=== PATIENT | female | born 1940 | race Caucasian/White ===

== ENCOUNTER 2018-03-25 08:31 | Day surgery (SDC) | payer MEDICARE ==
[~2018-03-25] VITALS: Ht 160 cm; Wt 55.1 kg
[~2018-03-25 08:31] MED LIST: ALPR0.257 PO; CARV3.122 PO; CLOP75TA15 PO; ESCI10TA PO; LEVO75TA7 PO; LIDOcaine 1%/PF 5ML 10 MG/ML VIAL SQ ONE; OMEP20TA5 PO
[2018-03-25 09:00] VITALS: BP 127/57
[2018-03-25] MEDS ORDERED: ACET1TAB25 PO (09:01)
[2018-03-25] MEDS ORDERED: CLOP75TA15 PO (09:01)
[2018-03-25] MEDS ORDERED: CYA500T PO (09:01)
[2018-03-25] MEDS ORDERED: FAMO20TA8 PO (09:01)
[2018-03-25] MEDS ORDERED: ATOR80TA PO (09:01)
[2018-03-25 09:30] VITALS: BP_SYST 107; BP_SYST 127; BP_DIAS 40; BP_DIAS 52
[2018-03-25 09:45] VITALS: BP 114/46
[2018-03-25] MEDS ORDERED: ibuprofen tablet 400 MG TABLET PO ONE (10:20)
== END 2018-03-25 13:45 | disposition home or self-care (01) ==
LOC: SSTAY O 08:31
PROVIDERS: ATTEND Radiology Diagnostic Radiology
DX: J90 Pleural effusion, not elsewhere classified (principal); K21.9 Gastro-esophageal reflux disease without esophagitis; E03.9 Hypothyroidism, unspecified; I48.91 Unspecified atrial fibrillation; G89.29 Other chronic pain; F41.8 Other specified anxiety disorders; I11.0 Hypertensive heart disease with heart failure; I50.9 Heart failure, unspecified; M19.90 Unspecified osteoarthritis, unspecified site; L40.9 Psoriasis, unspecified; Z96.651 Presence of right artificial knee joint; Z98.41 Cataract extraction status, right eye; Z98.42 Cataract extraction status, left eye; Z79.891 Long term (current) use of opiate analgesic; Z87.01 Personal history of pneumonia (recurrent); Z87.440 Personal history of urinary (tract) infections; Z87.11 Personal history of peptic ulcer disease; Z86.19 Personal history of other infectious and parasitic diseases; Z90.710 Acquired absence of both cervix and uterus; Z88.6 Allergy status to analgesic agent; Z88.5 Allergy status to narcotic agent; Z79.2 Long term (current) use of antibiotics; Z79.01 Long term (current) use of anticoagulants; Z79.899 Other long term (current) drug therapy; Z98.890 Other specified postprocedural states; Z82.3 Family history of stroke; Z80.9 Family history of malignant neoplasm, unspecified
CPT/HCPCS: 32555; 71045; J2001; 88108; 88305; 88341; 88342

== ENCOUNTER 2018-03-26 15:56 | Inpatient (IN) | payer MEDICARE ==
[~2018-03-26] VITALS: Ht 165.1 cm; Wt 60.0 kg
[~2018-03-26 15:56] MED LIST changes: +ACET1TAB25 PO; +ATOR80TA PO; -CARV3.122 PO; +CYA500T PO; +FAMO20TA8 PO; -LIDOcaine 1%/PF 5ML 10 MG/ML VIAL SQ ONE; -OMEP20TA5 PO
[2018-03-26] MEDS ORDERED: normal saline 1000ML IV soln IV ONE (16:05)
[2018-03-26 16:47] LABS: BASOPHILS # (AUTO) 0.1 X10'3 (0-0.2); BASOPHILS % (AUTO) 0.6 % (0-1); EOSINOPHILS # (AUTO) 0.2 X10'3 (0-0.9); EOSINOPHILS % (AUTO) 2.1 % (0-6); HEMATOCRIT 37.3 % (35.0-45.0); HEMOGLOBIN 12.6 g/dl (12.0-16.0); LYMPHOCYTES # (AUTO) 1.2 X10'3 (1.1-4.8); LYMPHOCYTES % (AUTO) 11.6 % (21-51); MEAN CORPUSCULAR HEMOGLOBIN 31.8 PG (27.0-31.0); MEAN CORPUSCULAR HGB CONC 33.7 % (33.0-36.5); MEAN CORPUSCULAR VOLUME 94.3 FL (78-98); MEAN PLATELET VOLUME 10.4 FL (7.4-10.4); MONOCYTES # (AUTO) 0.8 X10'3 (0-0.9); MONOCYTES % (AUTO) 7.5 % (2-12); NEUTROPHILS # (AUTO) 8.3 X10'3 (1.8-7.7); NEUTROPHILS % (AUTO) 78.2 % (42-75); PLATELET COUNT 155 X10'3 (140-440); RED BLOOD COUNT 3.95 X10'6 (4.20-5.60); RED CELL DISTRIBUTION WIDTH 13.9 % (11.5-14.5); WHITE BLOOD COUNT 10.6 X10'3 (4.5-11.0)
[2018-03-26 17:04] LABS: INR 1.1 INR; PROTHROMBIN TIME 11.3 SECONDS (9.0-12.0)
[2018-03-26 17:19] LABS: ALANINE AMINOTRANSFERASE 84 U/L (12-78); ALBUMIN/GLOBULIN RATIO 0.9 (1.1-1.5); ALKALINE PHOSPHATASE 85 IU/L (46-116); ANION GAP 7 (8-16); ASPARTATE AMINO TRANSFERASE 44 U/L (10-37); BILIRUBIN,TOTAL 0.9 MG/DL (0.1-1.0); BLOOD UREA NITROGEN 11 MG/DL (7-18); BUN/CREATININE RATIO 9.6 (6.6-38.0); CALCIUM 9.1 MG/DL (8.5-10.1); CHLORIDE 106 MMOL/L (99-107); CREATININE 1.15 MG/DL (0.40-0.90); GLUCOSE 157 MG/DL (70-104); POTASSIUM 3.5 MMOL/L (3.5-5.1); SODIUM 142 MMOL/L (135-145); TOTAL PROTEIN 6.4 G/DL (6.4-8.2); eGFR 46 ML/MIN
[2018-03-26] MEDS ORDERED: furosemide 10 MG/1 ML 10ml inj IV ONE (18:00)
[2018-03-26] MEDS ORDERED: levoFLOXACIN-Levaquin 750MG/D5 150 ML IV ONE (18:00)
[2018-03-26 18:31] LABS: CLARITY,URINE SLIGHTLY CLOUDY (Clear); COLOR,URINE YELLOW (Yellow); GLUCOSE, URINE NEGATIVE (Neg); KETONES,URINE NEGATIVE (Neg); LEUKOCYTE ESTERASE ,URINE SMALL (Neg); NITRITES, URINE NEGATIVE (Neg); OCCULT BLOOD,URINE MODERATE (Neg); PROTEIN,URINE NEGATIVE (Neg); UROBILINOGEN,URINE 0.2 E.U/dL (0.2-1.0)
[2018-03-26 18:39] LABS: UA COLLECTION TYPE STRAIGHT CATH
[2018-03-26 18:47] LABS: BACTERIA,URINE 1+ /HPF (Neg); MUCUS STRANDS FEW /LPF (Neg); SQUAMOUS EPITHELIAL CELL,UR FEW /LPF (FEW); TRANSITIONAL EPI CELLS,URINE FEW /HPF; WBC CLUMPS,URINE MODERATE /HPF (NEGATIVE)
[2018-03-26] MEDS ORDERED: potassium Cl 40MEQ/NS 500ml 500 ML IV PRN ×2 (22:00)
[2018-03-26] MEDS ORDERED: magnesium 1gm/100ml D5W IVPB 100 ML IV PRN (22:00)
[2018-03-26] MEDS ORDERED: potassium Cl 20 mEq SR tablet PO PRN (22:00)
[2018-03-26] MEDS ORDERED: magnesium Cl slow-release 64mg tablet PO PRN (22:00)
[2018-03-26] MEDS ORDERED: magnesium hydroxide 30ml (MOM) UD suspension PO PRN (22:00)
[2018-03-26] MEDS ORDERED: mag hydrox/Alum hydrox/simeth 30ml oral suspension PO PRN (22:00)
[2018-03-26] MEDS ORDERED: magnesium 4gm in 100ml NS 100 ML IV PRN (22:00)
[2018-03-26] MEDS ORDERED: acetaminophen 325mg tablet PO PRN ×2 (22:00)
[2018-03-26] MEDS: normal saline 1000ml 1,000 ML IV SCH (22:37)
[2018-03-26 22:41] LABS: HEMOGLOBIN A1C 5.1 % (4.5-6.2)
[2018-03-26 22:51] LABS: MAGNESIUM 1.7 MG/DL (1.5-2.4); PHOSPHORUS 2.1 MG/DL (2.3-4.5)
[2018-03-26 23:38] VITALS: BP 111/45
[2018-03-27] MEDS ORDERED: ondansetron/PF 4mg/2ml inj IV PRN (00:05)
[2018-03-27] MEDS ORDERED: LORazepam 2 mg/ml vial IV PRN (00:05)
[2018-03-27] MEDS: ondansetron/PF 4mg/2ml inj IV PRN ×2 (00:17→06:46)
[2018-03-27] MEDS: oxyCODONE/APAP 5-325mg tablet PO PRN ×2 (00:17→06:45)
[2018-03-27 05:52] LABS: BASOPHILS % (AUTO) 0.4 % (0-1); EOSINOPHILS # (AUTO) 0.4 X10'3 (0-0.9); EOSINOPHILS % (AUTO) 5.1 % (0-6); HEMATOCRIT 34.4 % (35.0-45.0); HEMOGLOBIN 11.8 g/dl (12.0-16.0); LYMPHOCYTES # (AUTO) 1.8 X10'3 (1.1-4.8); LYMPHOCYTES % (AUTO) 22.3 % (21-51); MEAN CORPUSCULAR HEMOGLOBIN 31.7 PG (27.0-31.0); MEAN CORPUSCULAR HGB CONC 34.1 % (33.0-36.5); MEAN CORPUSCULAR VOLUME 93.1 FL (78-98); MEAN PLATELET VOLUME 10.6 FL (7.4-10.4); MONOCYTES # (AUTO) 0.8 X10'3 (0-0.9); MONOCYTES % (AUTO) 9.7 % (2-12); NEUTROPHILS # (AUTO) 4.9 X10'3 (1.8-7.7); NEUTROPHILS % (AUTO) 62.5 % (42-75); PLATELET COUNT 123 X10'3 (140-440); RED CELL DISTRIBUTION WIDTH 13.6 % (11.5-14.5); WHITE BLOOD COUNT 7.9 X10'3 (4.5-11.0)
[2018-03-27 06:00] VITALS: BP 97/34
[2018-03-27 06:15] LABS: ALANINE AMINOTRANSFERASE 62 U/L (12-78); ALBUMIN 2.4 G/DL (3.4-5.0); ALBUMIN/GLOBULIN RATIO 0.8 (1.1-1.5); ALKALINE PHOSPHATASE 65 IU/L (46-116); ANION GAP 7 (8-16); ASPARTATE AMINO TRANSFERASE 33 U/L (10-37); BILIRUBIN,TOTAL 0.8 MG/DL (0.1-1.0); BLOOD UREA NITROGEN 11 MG/DL (7-18); BUN/CREATININE RATIO 11.1 (6.6-38.0); CALCIUM 8.4 MG/DL (8.5-10.1); CHLORIDE 107 MMOL/L (99-107); CHOL/HDL RATIO 1.5 (0.00-4.99); CHOLESTEROL 54 MG/DL (0-200); CREATININE 0.99 MG/DL (0.40-0.90); GLUCOSE 94 MG/DL (70-104); HDL CHOLESTEROL 35 MG/DL (35-60); LDL CHOLESTEROL 17 MG/DL (50-100); MAGNESIUM 1.6 MG/DL (1.5-2.4); PHOSPHORUS 2.8 MG/DL (2.3-4.5); POTASSIUM 3.3 MMOL/L (3.5-5.1); SODIUM 143 MMOL/L (135-145); TOTAL CARBON DIOXIDE 29.5 MMOL/L (24-32); TOTAL PROTEIN 5.6 G/DL (6.4-8.2); TRIGLYCERIDES 36 MG/DL (20-135); eGFR 54 ML/MIN
[2018-03-27 06:31] LABS: % IRON SATURATION 35 % (11-46); IRON 54 UG/DL (49-151); TOTAL IRON BINDING CAPACITY 155 UG/DL (259-388)
[2018-03-27] MEDS: normal saline 1000ml 1,000 ML IV SCH ×2 (07:56→17:43)
[2018-03-27] MEDS ORDERED: levoTHYROXINE 75mcg tablet PO SCH (08:00)
[2018-03-27] MEDS: K and/or MAG REPLACEMENT MC SCH (08:00)
[2018-03-27] MEDS ORDERED: citalopram 20mg tablet PO SCH (08:00)
[2018-03-27] MEDS ORDERED: normal saline 1000ml 1,000 ML IV ONE (09:15)
[2018-03-27] MEDS: levoTHYROXINE 75mcg tablet PO SCH (09:17)
[2018-03-27] MEDS: clopidogrel 75mg tablet PO SCH (09:18)
[2018-03-27] MEDS: cyanocobalamin 500mcg tablet PO SCH (09:18)
[2018-03-27] MEDS: famotidine 20mg tablet PO SCH ×2 (09:18→20:28)
[2018-03-27] MEDS: potassium Cl 20 mEq SR tablet PO PRN ×3 (09:24→20:28)
[2018-03-27 10:00] VITALS: BP 100/40
[2018-03-27 15:00] VITALS: BP_SYST 99; BP_DIAS 54; BP_DIAS 76
[2018-03-27] MEDS: Protein Smoothie (high protein) 240ml (8oz) cup PO SCH (17:30)
[2018-03-27 18:00] VITALS: BP 98/31
[2018-03-27 20:00] VITALS: BP_SYST 102; BP_SYST 106; BP_SYST 94; BP_DIAS 41; BP_DIAS 42
[2018-03-27] MEDS: atorvastatin 20mg tablet PO SCH (20:28)
[2018-03-27] MEDS: ALPRAZolam 0.5mg tablet PO PRN (20:31)
[2018-03-28] MEDS: normal saline 1000ml 1,000 ML IV SCH ×3 (02:59→21:26)
[2018-03-28 06:00] VITALS: BP 109/48
[2018-03-28 06:55] LABS: BASOPHILS % (AUTO) 0.6 % (0-1); EOSINOPHILS # (AUTO) 0.4 X10'3 (0-0.9); EOSINOPHILS % (AUTO) 5.4 % (0-6); HEMATOCRIT 31.1 % (35.0-45.0); HEMOGLOBIN 10.8 g/dl (12.0-16.0); LYMPHOCYTES # (AUTO) 1.5 X10'3 (1.1-4.8); LYMPHOCYTES % (AUTO) 23.3 % (21-51); MEAN CORPUSCULAR HEMOGLOBIN 32.3 PG (27.0-31.0); MEAN CORPUSCULAR HGB CONC 34.8 % (33.0-36.5); MEAN CORPUSCULAR VOLUME 92.9 FL (78-98); MEAN PLATELET VOLUME 10.7 FL (7.4-10.4); MONOCYTES # (AUTO) 0.5 X10'3 (0-0.9); MONOCYTES % (AUTO) 8.3 % (2-12); NEUTROPHILS # (AUTO) 4.1 X10'3 (1.8-7.7); NEUTROPHILS % (AUTO) 62.4 % (42-75); PLATELET COUNT 129 X10'3 (140-440); RED BLOOD COUNT 3.35 X10'6 (4.20-5.60); RED CELL DISTRIBUTION WIDTH 13.7 % (11.5-14.5); WHITE BLOOD COUNT 6.6 X10'3 (4.5-11.0)
[2018-03-28 07:26] LABS: LARGE PLATELETS FEW; PLATELET ESTIMATE DECREASED
[2018-03-28 07:39] LABS: ALANINE AMINOTRANSFERASE 72 U/L (12-78); ALBUMIN 2.1 G/DL (3.4-5.0); ALBUMIN/GLOBULIN RATIO 0.7 (1.1-1.5); ALKALINE PHOSPHATASE 72 IU/L (46-116); ANION GAP 4 (8-16); BILIRUBIN,TOTAL 0.7 MG/DL (0.1-1.0); BLOOD UREA NITROGEN 12 MG/DL (7-18); BUN/CREATININE RATIO 13.5 (6.6-38.0); CALCIUM 8.3 MG/DL (8.5-10.1); CHLORIDE 110 MMOL/L (99-107); CREATININE 0.89 MG/DL (0.40-0.90); GLUCOSE 81 MG/DL (70-104); MAGNESIUM 1.6 MG/DL (1.5-2.4); SODIUM 140 MMOL/L (135-145); TOTAL PROTEIN 5.1 G/DL (6.4-8.2); eGFR 61 ML/MIN
[2018-03-28] MEDS: cyanocobalamin 500mcg tablet PO SCH (07:52)
[2018-03-28] MEDS: citalopram 20mg tablet PO SCH (07:52)
[2018-03-28] MEDS: clopidogrel 75mg tablet PO SCH (07:52)
[2018-03-28] MEDS: levoTHYROXINE 75mcg tablet PO SCH (07:52)
[2018-03-28] MEDS: famotidine 20mg tablet PO SCH ×2 (07:52→20:44)
[2018-03-28] MEDS: ALPRAZolam 0.5mg tablet PO PRN ×2 (07:56→20:44)
[2018-03-28 08:00] VITALS: BP_SYST 73; BP_SYST 97; BP_DIAS 31; BP_DIAS 33; BP_DIAS 37
[2018-03-28] MEDS: K and/or MAG REPLACEMENT MC SCH (08:00)
[2018-03-28 08:20] LABS: ASPARTATE AMINO TRANSFERASE 54 U/L (10-37); PHOSPHORUS 2.3 MG/DL (2.3-4.5); POTASSIUM 4.6 MMOL/L (3.5-5.1)
[2018-03-28 10:00] VITALS: BP 96/41
[2018-03-28] MEDS ORDERED: pyridoxine 50mg tablet PO SCH (10:00)
[2018-03-28] MEDS: levoFLOXACIN 500mg tablet PO SCH (11:41)
[2018-03-28] MEDS ORDERED: normal saline 1000ml 1,000 ML IV ONE (14:35)
[2018-03-28] MEDS: oxyCODONE/APAP 5-325mg tablet PO PRN (14:36)
[2018-03-28] MEDS: ondansetron/PF 4mg/2ml inj IV PRN (14:36)
[2018-03-28] MEDS: Protein Smoothie (high protein) 240ml (8oz) cup PO SCH (17:30)
[2018-03-28 18:00] VITALS: BP 98/44
[2018-03-28] MEDS: atorvastatin 20mg tablet PO SCH (20:44)
[2018-03-28] MEDS: lactobacillus rhamnosus 10,000 MMU CELLS/CAPSULE PO SCH (20:44)
[2018-03-29] VITALS (7 sets, daily range): BP systolic 83–129; BP diastolic 34–82
[2018-03-29] MEDS: oxyCODONE/APAP 5-325mg tablet PO PRN (00:09)
[2018-03-29 06:48] LABS: BASOPHILS % (AUTO) 0.4 % (0-1); EOSINOPHILS # (AUTO) 0.4 X10'3 (0-0.9); EOSINOPHILS % (AUTO) 4.9 % (0-6); HEMATOCRIT 35.8 % (35.0-45.0); HEMOGLOBIN 12.2 g/dl (12.0-16.0); LYMPHOCYTES # (AUTO) 1.5 X10'3 (1.1-4.8); LYMPHOCYTES % (AUTO) 20.2 % (21-51); MEAN CORPUSCULAR HEMOGLOBIN 32.3 PG (27.0-31.0); MEAN CORPUSCULAR HGB CONC 34.1 % (33.0-36.5); MEAN CORPUSCULAR VOLUME 94.7 FL (78-98); MEAN PLATELET VOLUME 10.9 FL (7.4-10.4); MONOCYTES # (AUTO) 0.6 X10'3 (0-0.9); NEUTROPHILS % (AUTO) 66.5 % (42-75); PLATELET COUNT 130 X10'3 (140-440); RED BLOOD COUNT 3.79 X10'6 (4.20-5.60); RED CELL DISTRIBUTION WIDTH 13.6 % (11.5-14.5); WHITE BLOOD COUNT 7.5 X10'3 (4.5-11.0)
[2018-03-29 07:21] LABS: ALANINE AMINOTRANSFERASE 57 U/L (12-78); ALBUMIN 2.2 G/DL (3.4-5.0); ALBUMIN/GLOBULIN RATIO 0.7 (1.1-1.5); ALKALINE PHOSPHATASE 70 IU/L (46-116); ANION GAP 3 (8-16); ASPARTATE AMINO TRANSFERASE 34 U/L (10-37); BILIRUBIN,TOTAL 0.4 MG/DL (0.1-1.0); BLOOD UREA NITROGEN 7 MG/DL (7-18); BUN/CREATININE RATIO 7.5 (6.6-38.0); CALCIUM 8.6 MG/DL (8.5-10.1); CHLORIDE 111 MMOL/L (99-107); CREATININE 0.93 MG/DL (0.40-0.90); GLUCOSE 93 MG/DL (70-104); MAGNESIUM 1.6 MG/DL (1.5-2.4); PHOSPHORUS 3.2 MG/DL (2.3-4.5); POTASSIUM 3.7 MMOL/L (3.5-5.1); SODIUM 143 MMOL/L (135-145); TOTAL CARBON DIOXIDE 28.7 MMOL/L (24-32); TOTAL PROTEIN 5.3 G/DL (6.4-8.2); eGFR 58 ML/MIN
[2018-03-29] MEDS: Protein Smoothie (high protein) 240ml (8oz) cup PO SCH ×2 (07:30→17:30)
[2018-03-29] MEDS: normal saline 1000ml 1,000 ML IV SCH ×2 (07:38→19:49)
[2018-03-29] MEDS: levoTHYROXINE 75mcg tablet PO SCH (07:38)
[2018-03-29] MEDS: famotidine 20mg tablet PO SCH ×2 (07:38→19:49)
[2018-03-29] MEDS: citalopram 20mg tablet PO SCH (07:38)
[2018-03-29] MEDS: clopidogrel 75mg tablet PO SCH (07:38)
[2018-03-29] MEDS: lactobacillus rhamnosus 10,000 MMU CELLS/CAPSULE PO SCH ×2 (07:38→19:49)
[2018-03-29] MEDS: cyanocobalamin 500mcg tablet PO SCH (07:38)
[2018-03-29] MEDS: K and/or MAG REPLACEMENT MC SCH (08:00)
[2018-03-29 10:20] LABS: LARGE PLATELETS FEW; PLATELET ESTIMATE DECREASED
[2018-03-29 10:22] LABS: ACANTHOCYTES FEW; BURR CELLS 1+
[2018-03-29] MEDS: levoFLOXACIN 500mg tablet PO SCH (11:51)
[2018-03-29] MEDS ORDERED: ALPRAZolam 0.5mg tablet PO PRN (17:30)
[2018-03-29] MEDS: midodrine tablet 2.5 MG TABLET PO SCH (19:49)
[2018-03-29] MEDS: atorvastatin 20mg tablet PO SCH (20:06)
[2018-03-30] MEDS: midodrine tablet 2.5 MG TABLET PO SCH ×3 (01:49→16:17)
[2018-03-30 07:31] LABS: BASOPHILS % (AUTO) 0.2 % (0-1); EOSINOPHILS # (AUTO) 0.3 X10'3 (0-0.9); EOSINOPHILS % (AUTO) 3.6 % (0-6); HEMATOCRIT 35.3 % (35.0-45.0); LYMPHOCYTES # (AUTO) 1.6 X10'3 (1.1-4.8); LYMPHOCYTES % (AUTO) 20.3 % (21-51); MEAN CORPUSCULAR HEMOGLOBIN 31.8 PG (27.0-31.0); MEAN CORPUSCULAR HGB CONC 34.1 % (33.0-36.5); MEAN CORPUSCULAR VOLUME 93.3 FL (78-98); MONOCYTES # (AUTO) 0.6 X10'3 (0-0.9); MONOCYTES % (AUTO) 7.6 % (2-12); NEUTROPHILS # (AUTO) 5.5 X10'3 (1.8-7.7); NEUTROPHILS % (AUTO) 68.3 % (42-75); PLATELET COUNT 148 X10'3 (140-440); RED BLOOD COUNT 3.78 X10'6 (4.20-5.60); RED CELL DISTRIBUTION WIDTH 13.6 % (11.5-14.5)
[2018-03-30] MEDS: clopidogrel 75mg tablet PO SCH (08:00)
[2018-03-30] MEDS: lactobacillus rhamnosus 10,000 MMU CELLS/CAPSULE PO SCH ×2 (08:00→20:54)
[2018-03-30] MEDS: cyanocobalamin 500mcg tablet PO SCH (08:00)
[2018-03-30] MEDS: K and/or MAG REPLACEMENT MC SCH (08:00)
[2018-03-30] MEDS: citalopram 20mg tablet PO SCH (08:00)
[2018-03-30] MEDS: Protein Smoothie (high protein) 240ml (8oz) cup PO SCH (08:00)
[2018-03-30] MEDS: famotidine 20mg tablet PO SCH ×2 (08:00→20:54)
[2018-03-30] MEDS: levoTHYROXINE 75mcg tablet PO SCH (08:00)
[2018-03-30 08:03] VITALS: BP 117/40
[2018-03-30 09:09] LABS: ALANINE AMINOTRANSFERASE 55 U/L (12-78); ALBUMIN 2.2 G/DL (3.4-5.0); ALBUMIN/GLOBULIN RATIO 0.7 (1.1-1.5); ALKALINE PHOSPHATASE 69 IU/L (46-116); ANION GAP 10 (8-16); ASPARTATE AMINO TRANSFERASE 35 U/L (10-37); BILIRUBIN,TOTAL 0.4 MG/DL (0.1-1.0); BLOOD UREA NITROGEN 6 MG/DL (7-18); BUN/CREATININE RATIO 6.8 (6.6-38.0); CALCIUM 8.6 MG/DL (8.5-10.1); CHLORIDE 110 MMOL/L (99-107); CREATININE 0.88 MG/DL (0.40-0.90); GLUCOSE 94 MG/DL (70-104); MAGNESIUM 1.6 MG/DL (1.5-2.4); PHOSPHORUS 2.4 MG/DL (2.3-4.5); POTASSIUM 3.4 MMOL/L (3.5-5.1); SODIUM 144 MMOL/L (135-145); TOTAL CARBON DIOXIDE 24.2 MMOL/L (24-32); TOTAL PROTEIN 5.2 G/DL (6.4-8.2); eGFR 62 ML/MIN
[2018-03-30] MEDS: levoFLOXACIN 500mg tablet PO SCH (12:59)
[2018-03-30 13:03] VITALS: BP 119/36
[2018-03-30] MEDS ORDERED: temazepam 15mg capsule PO PRN (14:05)
[2018-03-30] MEDS ORDERED: DOXYCYCLINE 100MG CAPSULE PO SCH (17:30)
[2018-03-30 18:00] VITALS: BP 124/51
[2018-03-30 20:00] VITALS: BP_SYST 101; BP_SYST 119; BP_SYST 123; BP_DIAS 38; BP_DIAS 48; BP_DIAS 56
[2018-03-30] MEDS: atorvastatin 20mg tablet PO SCH (20:55)
[2018-03-30] MEDS: ALPRAZolam 0.5mg tablet PO PRN (21:05)
[2018-03-30 22:00] VITALS: BP 123/56
[2018-03-30] MEDS ORDERED: potassium Cl 40MEQ/NS 500ml 500 ML IV PRN ×2 (22:05)
[2018-03-30] MEDS ORDERED: magnesium 4gm in 100ml NS 100 ML IV PRN (22:05)
[2018-03-30] MEDS ORDERED: potassium Cl 20 mEq SR tablet PO PRN ×2 (22:05)
[2018-03-30] MEDS ORDERED: magnesium Cl slow-release 64mg tablet PO PRN (22:05)
[2018-03-31] MEDS: midodrine tablet 2.5 MG TABLET PO SCH ×4 (00:11→23:27)
[2018-03-31 06:06] LABS: BASOPHILS % (AUTO) 0.3 % (0-1); EOSINOPHILS # (AUTO) 0.4 X10'3 (0-0.9); EOSINOPHILS % (AUTO) 5.5 % (0-6); HEMATOCRIT 35.1 % (35.0-45.0); LYMPHOCYTES # (AUTO) 1.8 X10'3 (1.1-4.8); MEAN CORPUSCULAR HEMOGLOBIN 32.2 PG (27.0-31.0); MEAN CORPUSCULAR HGB CONC 34.1 % (33.0-36.5); MEAN CORPUSCULAR VOLUME 94.6 FL (78-98); MONOCYTES # (AUTO) 0.7 X10'3 (0-0.9); NEUTROPHILS # (AUTO) 4.5 X10'3 (1.8-7.7); NEUTROPHILS % (AUTO) 61.2 % (42-75); PLATELET COUNT 156 X10'3 (140-440); RED BLOOD COUNT 3.71 X10'6 (4.20-5.60); WHITE BLOOD COUNT 7.3 X10'3 (4.5-11.0)
[2018-03-31 06:37] LABS: ALANINE AMINOTRANSFERASE 48 U/L (12-78); ALBUMIN 2.1 G/DL (3.4-5.0); ALBUMIN/GLOBULIN RATIO 0.7 (1.1-1.5); ALKALINE PHOSPHATASE 62 IU/L (46-116); ANION GAP 3 (8-16); ASPARTATE AMINO TRANSFERASE 32 U/L (10-37); BILIRUBIN,TOTAL 0.5 MG/DL (0.1-1.0); BLOOD UREA NITROGEN 5 MG/DL (7-18); BUN/CREATININE RATIO 5.9 (6.6-38.0); CALCIUM 8.7 MG/DL (8.5-10.1); CHLORIDE 111 MMOL/L (99-107); CREATININE 0.85 MG/DL (0.40-0.90); GLUCOSE 94 MG/DL (70-104); MAGNESIUM 1.9 MG/DL (1.5-2.4); PHOSPHORUS 2.7 MG/DL (2.3-4.5); POTASSIUM 3.6 MMOL/L (3.5-5.1); SODIUM 145 MMOL/L (135-145); TOTAL CARBON DIOXIDE 30.6 MMOL/L (24-32); eGFR 65 ML/MIN
[2018-03-31] MEDS: Protein Smoothie (high protein) 240ml (8oz) cup PO SCH ×2 (07:30→17:30)
[2018-03-31 08:00] VITALS: BP_SYST 105; BP_SYST 125; BP_SYST 128; BP_SYST 86; BP_DIAS 46; BP_DIAS 48; BP_DIAS 51
[2018-03-31] MEDS: K and/or MAG REPLACEMENT MC SCH (08:00)
[2018-03-31] MEDS: citalopram 20mg tablet PO SCH (09:29)
[2018-03-31] MEDS: cyanocobalamin 500mcg tablet PO SCH (09:29)
[2018-03-31] MEDS: levoTHYROXINE 75mcg tablet PO SCH (09:29)
[2018-03-31] MEDS: clopidogrel 75mg tablet PO SCH (09:29)
[2018-03-31] MEDS: lactobacillus rhamnosus 10,000 MMU CELLS/CAPSULE PO SCH ×2 (09:29→20:39)
[2018-03-31] MEDS: famotidine 20mg tablet PO SCH ×2 (09:29→20:39)
[2018-03-31 12:00] VITALS: BP 125/48
[2018-03-31 12:50] VITALS: BP 128/51
[2018-03-31 18:00] VITALS: BP 136/37
[2018-03-31] MEDS: atorvastatin 20mg tablet PO SCH (20:39)
[2018-03-31] MEDS: ALPRAZolam 0.5mg tablet PO PRN (20:46)
[2018-03-31 22:00] VITALS: BP 132/53
[2018-04-01 06:00] VITALS: BP 118/57
[2018-04-01] MEDS: K and/or MAG REPLACEMENT MC SCH (07:53)
[2018-04-01] MEDS: Protein Smoothie (high protein) 240ml (8oz) cup PO SCH (07:53)
[2018-04-01 08:00] VITALS: BP_SYST 104; BP_SYST 126; BP_SYST 88; BP_DIAS 43; BP_DIAS 48; BP_DIAS 52
[2018-04-01] MEDS: lactobacillus rhamnosus 10,000 MMU CELLS/CAPSULE PO SCH (08:07)
[2018-04-01] MEDS: citalopram 20mg tablet PO SCH (08:08)
[2018-04-01] MEDS: famotidine 20mg tablet PO SCH (08:08)
[2018-04-01] MEDS: levoTHYROXINE 75mcg tablet PO SCH (08:08)
[2018-04-01] MEDS: clopidogrel 75mg tablet PO SCH (08:08)
[2018-04-01] MEDS: cyanocobalamin 500mcg tablet PO SCH (08:09)
[2018-04-01] MEDS: midodrine tablet 2.5 MG TABLET PO SCH ×2 (09:02→15:41)
[2018-04-01 10:00] VITALS: BP 124/49
[2018-04-01] MEDS ORDERED: MIDO5TAB PO (14:45)
[2018-04-01] MEDS ORDERED: LEVO75TA7 PO ×2 (14:45→20:49)
[2018-04-01] MEDS: oxyCODONE/APAP 5-325mg tablet PO PRN (16:04)
[2018-04-01 18:00] VITALS: BP 121/62
[2018-04-01] MEDS ORDERED: ESCI10TA PO (20:40)
[2018-04-01] MEDS ORDERED: ALPR-623 PO (20:40)
[2018-04-01] MEDS ORDERED: MIDO2.5T14 PO (20:49)
[2018-04-10] MEDS ORDERED: MIRT15TA8 PO (23:28)
[2018-04-10] MEDS ORDERED: CITA10TA9 PO (23:28)
[2018-04-10] MEDS ORDERED: TRAZ-218 PO (23:28)
[2018-04-10] MEDS ORDERED: ALPR-160 PO (23:28)
== END 2018-04-01 16:12 | DRG 690 ==
LOC: ER 15:57 → ED HOLD 21:56 → EDBEDREQ 22:38 → ORTHO 4S 23:01
PROVIDERS: ADMIT Family Medicine; ATTEND Family Medicine
PROC: BW241ZZ Computerized Tomography (CT Scan) of Chest and Abdomen using Low Osmolar Contrast (ICD-10-PCS; principal; 2018-03-27)
DX: N39.0 Urinary tract infection, site not specified (principal); E87.2 Acidosis; J90 Pleural effusion, not elsewhere classified; R53.1 Weakness; I95.1 Orthostatic hypotension; S27.0XXD Traumatic pneumothorax, subsequent encounter; K25.9 Gastric ulcer, unspecified as acute or chronic, without hemorrhage or perforation; R62.7 Adult failure to thrive; I48.91 Unspecified atrial fibrillation; Z96.652 Presence of left artificial knee joint; B96.20 Unspecified Escherichia coli [E. coli] as the cause of diseases classified elsewhere; E86.0 Dehydration; B19.20 Unspecified viral hepatitis C without hepatic coma; G89.29 Other chronic pain; M54.9 Dorsalgia, unspecified; R63.4 Abnormal weight loss; R82.71 Bacteriuria; E78.5 Hyperlipidemia, unspecified; B95.62 Methicillin resistant Staphylococcus aureus infection as the cause of diseases classified elsewhere; E03.9 Hypothyroidism, unspecified; R33.9 Retention of urine, unspecified; F41.1 Generalized anxiety disorder; W01.0XXA Fall on same level from slipping, tripping and stumbling without subsequent striking against object, initial encounter; F32.9 Major depressive disorder, single episode, unspecified; R29.6 Repeated falls; E05.90 Thyrotoxicosis, unspecified without thyrotoxic crisis or storm; Z66 Do not resuscitate; Z80.0 Family history of malignant neoplasm of digestive organs; Z87.11 Personal history of peptic ulcer disease; Z88.6 Allergy status to analgesic agent; Z88.8 Allergy status to other drugs, medicaments and biological substances; Z81.8 Family history of other mental and behavioral disorders; Z82.3 Family history of stroke; Z86.73 Personal history of transient ischemic attack (TIA), and cerebral infarction without residual deficits; Z90.710 Acquired absence of both cervix and uterus; Z79.890 Hormone replacement therapy; Z79.899 Other long term (current) drug therapy; Z90.49 Acquired absence of other specified parts of digestive tract; Z79.02 Long term (current) use of antithrombotics/antiplatelets; Z68.22 Body mass index [BMI] 22.0-22.9, adult; Y93.89 Activity, other specified; Y92.89 Other specified places as the place of occurrence of the external cause; Y99.8 Other external cause status
CPT/HCPCS: 36415; 70450; 70544; 70551; 71045; 71250; 80053; 80061; 81001; 82746; 82948; 83036; 83540; 83550; 83605; 83735; 83880; 84100; 84439; 84443; 84484; 85025; 85610; 87040; 87070; 87077; 87088; 87186; 92616; 93005; 93306; 96361; 96365; 96366; 96375; 97110; 97116; 97161; 97530; 99285; A4315; A4353; A6209; A6212; A6213; J1940; J1956; J2060; J2405; J7030

== ENCOUNTER 2019-05-11 10:44 | Emergency (ER) | payer MEDICARE ==
[~2019-05-11] VITALS: Ht 160 cm; Wt 59.3 kg
[~2019-05-11 10:44] MED LIST changes: -ACET1TAB25 PO; +ALPR-160 PO; -ALPR0.257 PO; +CITA10TA9 PO; -CYA500T PO; +CYAN500T63 PO; -ESCI10TA PO; +MIDO2.5T14 PO; +MIRT15TA8 PO; +TRAZ-251 PO
--- NOTE | 2019-05-11 11:40 | NUR ---
pt back from x ray.connected back to monitor.
[2019-05-11] MEDS ORDERED: normal saline 1000ML IV soln IV ONE (11:50)
[2019-05-11 11:53] LABS: BASOPHILS % (AUTO) 0.4 % (0-1); EOSINOPHILS # (AUTO) 0.1 X10'3 (0-0.9); EOSINOPHILS % (AUTO) 0.7 % (0-6); HEMATOCRIT 37.9 % (35.0-45.0); LYMPHOCYTES # (AUTO) 1.6 X10'3 (1.1-4.8); LYMPHOCYTES % (AUTO) 16.8 % (21-51); MEAN CORPUSCULAR HEMOGLOBIN 33.7 PG (27.0-31.0); MEAN CORPUSCULAR HGB CONC 34.3 g/dL (33.0-36.5); MEAN CORPUSCULAR VOLUME 98.2 FL (78-98); MEAN PLATELET VOLUME 9.1 FL (7.4-10.4); MONOCYTES # (AUTO) 0.8 X10'3 (0-0.9); MONOCYTES % (AUTO) 8.1 % (2-12); NEUTROPHILS # (AUTO) 6.9 X10'3 (1.8-7.7); PLATELET COUNT 248 X10'3 (140-440); RED BLOOD COUNT 3.86 X10'6 (4.20-5.60); RED CELL DISTRIBUTION WIDTH 13.9 % (11.5-14.5); WHITE BLOOD COUNT 9.4 X10'3 (4.5-11.0)
[2019-05-11 12:08] LABS: ALANINE AMINOTRANSFERASE 35 U/L (12-78); ALBUMIN 3.1 G/DL (3.4-5.0); ALBUMIN/GLOBULIN RATIO 0.8 (1.1-1.5); ALKALINE PHOSPHATASE 70 IU/L (46-116); ANION GAP 8 (8-16); ASPARTATE AMINO TRANSFERASE 33 U/L (10-37); BILIRUBIN,TOTAL 0.5 MG/DL (0.1-1.0); BLOOD UREA NITROGEN 11 MG/DL (7-18); BUN/CREATININE RATIO 10.4 (6.6-38.0); CALCIUM 8.9 MG/DL (8.5-10.1); CHLORIDE 108 MMOL/L (99-107); CREATININE 1.06 MG/DL (0.40-0.90); GLUCOSE 97 MG/DL (70-104); PARTIAL THROMBOPLASTIN TIME 25 SECONDS (22-32); POTASSIUM 3.5 MMOL/L (3.5-5.1); SODIUM 142 MMOL/L (135-145); TOTAL CARBON DIOXIDE 26.4 MMOL/L (24-32); TOTAL PROTEIN 7.2 G/DL (6.4-8.2); eGFR 50 ML/MIN
[2019-05-11] MEDS ORDERED: BENZ-16 PO (12:28)
[2019-05-11] MEDS ORDERED: LIDOCAINE 4% (40MG/ML) topical solution 50ml **BRONCH ONLY MM ONE (12:50)
--- NOTE | 2019-05-11 12:50 | NUR ---
nurse jimmy spoke to dr hart to order for neb traeted as rt was paged by the [facility] er help desk specialist as requested by dr hart.as per dr hart he called pharmacy to put in the order.waiting on order to treat pt and then discharging.
[2019-05-11] MEDS ORDERED: LIDOCAINE 4% (40MG/ML) topical solution 50ml **BRONCH ONLY ONE (12:56)
[2019-05-11 13:31] VITALS: BP 123/50
== END 2019-05-11 13:32 | disposition home or self-care (01) ==
LOC: ER 10:45
DX: J90 Pleural effusion, not elsewhere classified (principal); I48.91 Unspecified atrial fibrillation; E07.9 Disorder of thyroid, unspecified; G89.29 Other chronic pain; F41.9 Anxiety disorder, unspecified; Z90.710 Acquired absence of both cervix and uterus; Z98.890 Other specified postprocedural states; Z88.6 Allergy status to analgesic agent; Z88.5 Allergy status to narcotic agent; Z79.899 Other long term (current) drug therapy
CPT/HCPCS: 36415; 71046; 80053; 84145; 84484; 85025; 85610; 85730; 87040; 93005; 94640; 94760; 99284; J7030

== ENCOUNTER 2019-05-27 11:19 | Emergency (ER) | payer MEDICARE ==
[~2019-05-27] VITALS: Ht 160 cm; Wt 62.4 kg
[~2019-05-27 11:19] MED LIST changes: -ALPR-160 PO; +ALPR0.255 PO; +BENZ-16 PO
[2019-05-27] MEDS ORDERED: morphine 4 MG/ML inj SYRINge IV PRN (13:15)
[2019-05-27] MEDS ORDERED: ondansetron/PF 4mg/2ml inj IV ONE (13:15)
[2019-05-27] MEDS ORDERED: normal saline 1000ML IV soln IVB ONE (13:15)
[2019-05-27 13:54] LABS: BASOPHILS % (AUTO) 0.5 % (0-1); EOSINOPHILS # (AUTO) 0.1 X10'3 (0-0.9); HEMATOCRIT 35.3 % (35.0-45.0); HEMOGLOBIN 12.3 g/dl (12.0-16.0); LYMPHOCYTES # (AUTO) 1.5 X10'3 (1.1-4.8); LYMPHOCYTES % (AUTO) 21.3 % (21-51); MEAN CORPUSCULAR HEMOGLOBIN 34.1 PG (27.0-31.0); MEAN CORPUSCULAR HGB CONC 34.8 g/dL (33.0-36.5); MEAN CORPUSCULAR VOLUME 97.9 FL (78-98); MEAN PLATELET VOLUME 9.1 FL (7.4-10.4); MONOCYTES # (AUTO) 0.8 X10'3 (0-0.9); MONOCYTES % (AUTO) 12.3 % (2-12); NEUTROPHILS # (AUTO) 4.5 X10'3 (1.8-7.7); NEUTROPHILS % (AUTO) 64.9 % (42-75); PLATELET COUNT 144 X10'3 (140-440); RED BLOOD COUNT 3.61 X10'6 (4.20-5.60); RED CELL DISTRIBUTION WIDTH 13.8 % (11.5-14.5); WHITE BLOOD COUNT 6.9 X10'3 (4.5-11.0)
[2019-05-27 13:59] LABS: ALANINE AMINOTRANSFERASE 25 U/L (12-78); ALBUMIN 3.1 G/DL (3.4-5.0); ALBUMIN/GLOBULIN RATIO 0.8 (1.1-1.5); ALKALINE PHOSPHATASE 82 IU/L (46-116); ANION GAP 8 (8-16); ASPARTATE AMINO TRANSFERASE 22 U/L (10-37); BILIRUBIN,TOTAL 0.4 MG/DL (0.1-1.0); BLOOD UREA NITROGEN 21 MG/DL (7-18); BUN/CREATININE RATIO 22.6 (6.6-38.0); CALCIUM 9.1 MG/DL (8.5-10.1); CHLORIDE 108 MMOL/L (99-107); CREATININE 0.93 MG/DL (0.40-0.90); GLUCOSE 95 MG/DL (70-104); SODIUM 143 MMOL/L (135-145); TOTAL PROTEIN 6.8 G/DL (6.4-8.2); eGFR 58 ML/MIN
[2019-05-27 14:06] LABS: LIPASE 135 U/L (73-393)
[2019-05-27 15:38] LABS: CLARITY,URINE SLIGHTLY CLOUDY (Clear); COLOR,URINE YELLOW (Yellow); GLUCOSE, URINE NEGATIVE (Neg); KETONES,URINE NEGATIVE (Neg); LEUKOCYTE ESTERASE ,URINE LARGE (Neg); NITRITES, URINE POSITIVE (Neg); OCCULT BLOOD,URINE LARGE (Neg); PROTEIN,URINE NEGATIVE (Neg); UROBILINOGEN,URINE 0.2 E.U/dL (0.2-1.0)
[2019-05-27 15:42] LABS: UA COLLECTION TYPE STRAIGHT CATH
[2019-05-27 15:44] LABS: WBC,URINE 30-50 /HPF (0-4)
[2019-05-27 15:45] LABS: BACTERIA,URINE 4+ /HPF (Neg); RBC,URINE 50-100 /HPF (0-2); SQUAMOUS EPITHELIAL CELL,UR FEW /LPF (FEW)
[2019-05-27 15:46] LABS: WBC CLUMPS,URINE FEW /HPF (NEGATIVE)
[2019-05-27 15:47] LABS: CELLULAR CAST 0-4 /LPF (NEGATIVE)
[2019-05-27] MEDS ORDERED: CefTRIAXone 2gm/D5W 50ml 50 ML IV ONE (16:25)
[2019-05-27 16:40] VITALS: BP 128/70
[2019-05-27] MEDS ORDERED: CEPH500C5 PO (17:11)
== END 2019-05-27 17:23 | disposition home or self-care (01) ==
LOC: ER 11:20
DX: N39.0 Urinary tract infection, site not specified (principal); R53.1 Weakness; J90 Pleural effusion, not elsewhere classified; R10.84 Generalized abdominal pain; I48.91 Unspecified atrial fibrillation; G89.29 Other chronic pain; Z90.710 Acquired absence of both cervix and uterus; Z86.19 Personal history of other infectious and parasitic diseases; Z98.890 Other specified postprocedural states; Z88.6 Allergy status to analgesic agent; Z88.5 Allergy status to narcotic agent; Z79.899 Other long term (current) drug therapy
CPT/HCPCS: 36415; 71045; 74176; 80053; 81001; 83690; 84484; 85025; 87077; 87088; 87186; 93005; 96365; 96375; 99284; J0696; J2270; J2405; J7030; P9612

== ENCOUNTER 2019-06-09 13:31 | Emergency (ER) | payer MEDICARE ==
[~2019-06-09] VITALS: Ht 160 cm; Wt 61.0 kg
[~2019-06-09 13:31] MED LIST changes: +CEPH500C5 PO
[2019-06-09 13:57] VITALS: BP 118/45
[2019-06-09 14:22] LABS: CLARITY,URINE CLOUDY (Clear); COLOR,URINE YELLOW (Yellow); GLUCOSE, URINE NEGATIVE (Neg); KETONES,URINE NEGATIVE (Neg); LEUKOCYTE ESTERASE ,URINE LARGE (Neg); NITRITES, URINE NEGATIVE (Neg); OCCULT BLOOD,URINE SMALL (Neg); PH,URINE 7.5 (4.8-8.0); PROTEIN,URINE NEGATIVE (Neg); UROBILINOGEN,URINE 0.2 E.U/dL (0.2-1.0)
[2019-06-09 14:30] LABS: BASOPHILS # (AUTO) 0.1 X10'3 (0-0.2); BASOPHILS % (AUTO) 0.5 % (0-1); EOSINOPHILS % (AUTO) 0.4 % (0-6); HEMATOCRIT 38.6 % (35.0-45.0); HEMOGLOBIN 13.1 g/dl (12.0-16.0); LYMPHOCYTES # (AUTO) 1.8 X10'3 (1.1-4.8); LYMPHOCYTES % (AUTO) 15.6 % (21-51); MEAN CORPUSCULAR HEMOGLOBIN 33.4 PG (27.0-31.0); MEAN CORPUSCULAR VOLUME 98.3 FL (78-98); MONOCYTES # (AUTO) 0.9 X10'3 (0-0.9); MONOCYTES % (AUTO) 7.8 % (2-12); NEUTROPHILS # (AUTO) 8.6 X10'3 (1.8-7.7); NEUTROPHILS % (AUTO) 75.7 % (42-75); PLATELET COUNT 180 X10'3 (140-440); RED BLOOD COUNT 3.93 X10'6 (4.20-5.60); RED CELL DISTRIBUTION WIDTH 13.8 % (11.5-14.5); WHITE BLOOD COUNT 11.4 X10'3 (4.5-11.0)
[2019-06-09 14:31] LABS: UA COLLECTION TYPE CLN CATCH MIDSTREAM
[2019-06-09 14:33] LABS: BACTERIA,URINE 1+ /HPF (Neg); MUCUS STRANDS FEW /LPF (Neg); RBC,URINE 0-2 /HPF (0-2); SQUAMOUS EPITHELIAL CELL,UR FEW /LPF (FEW); WBC,URINE TNTC /HPF (0-4)
[2019-06-09 14:45] LABS: ALANINE AMINOTRANSFERASE 41 U/L (12-78); ALBUMIN 3.3 G/DL (3.4-5.0); ALBUMIN/GLOBULIN RATIO 0.8 (1.1-1.5); ALKALINE PHOSPHATASE 82 IU/L (46-116); AMYLASE 46 U/L (25-115); ANION GAP 8 (8-16); ASPARTATE AMINO TRANSFERASE 38 U/L (10-37); BILIRUBIN,TOTAL 0.5 MG/DL (0.1-1.0); BLOOD UREA NITROGEN 12 MG/DL (7-18); BUN/CREATININE RATIO 13.3 (6.6-38.0); CALCIUM 8.9 MG/DL (8.5-10.1); CHLORIDE 106 MMOL/L (99-107); GLUCOSE 97 MG/DL (70-104); LIPASE 111 U/L (73-393); POTASSIUM 3.9 MMOL/L (3.5-5.1); SODIUM 144 MMOL/L (135-145); TOTAL CARBON DIOXIDE 30.3 MMOL/L (24-32); TOTAL PROTEIN 7.2 G/DL (6.4-8.2); eGFR 60 ML/MIN
[2019-06-09] MEDS ORDERED: PHEN-716 PO (15:38)
[2019-06-09] MEDS ORDERED: BACDS PO (15:38)
[2019-06-09] MEDS ORDERED: traMADol 50MG tablet PO ONE (15:40)
[2019-06-09] MEDS ORDERED: LIDOcaine/epinephrine TOPICAL 5 ML BTL TOP ONE (16:35)
== END 2019-06-09 16:36 | disposition home or self-care (01) ==
LOC: ER 13:32
DX: N39.0 Urinary tract infection, site not specified (principal); J02.9 Acute pharyngitis, unspecified; R05 Cough; I48.91 Unspecified atrial fibrillation; G89.29 Other chronic pain; F41.9 Anxiety disorder, unspecified; Z86.19 Personal history of other infectious and parasitic diseases; Z90.710 Acquired absence of both cervix and uterus; Z98.890 Other specified postprocedural states; Z88.6 Allergy status to analgesic agent; Z88.5 Allergy status to narcotic agent; Z79.899 Other long term (current) drug therapy
CPT/HCPCS: 36415; 80053; 81001; 82150; 83690; 85025; 87088; 99283

== ENCOUNTER 2019-06-22 07:43 | Day surgery (SDC) | payer MEDICARE ==
[~2019-06-22] VITALS: Ht 160 cm; Wt 63.1 kg
[~2019-06-22 07:43] MED LIST changes: -BENZ-16 PO; +PHEN-716 PO
[2019-06-22 08:26] VITALS: BP 134/65
[2019-06-22] MEDS ORDERED: ALPR0.252 PO (08:38)
[2019-06-22] MEDS ORDERED: RISP0.253 PO (08:38)
[2019-06-22] MEDS ORDERED: ALPR2TAB2 PO (08:38)
[2019-06-22] MEDS ORDERED: CYAN10007 IM (08:38)
[2019-06-22] MEDS ORDERED: DIVA125T2 PO (08:38)
[2019-06-22] MEDS ORDERED: CYAN500T63 PO (08:38)
[2019-06-22 09:22] VITALS: BP 145/82
[2019-06-22 09:30] VITALS: BP 137/72
[2019-06-22 09:45] VITALS: BP 126/43
[2019-06-22 10:00] VITALS: BP 124/79
== END 2019-06-22 10:13 | disposition home or self-care (01) ==
LOC: SSTAY O 07:43
PROVIDERS: ATTEND Radiology Diagnostic Radiology
DX: J90 Pleural effusion, not elsewhere classified (principal); Z88.8 Allergy status to other drugs, medicaments and biological substances
CPT/HCPCS: 32555; 71045; C1729

== ENCOUNTER 2019-08-20 13:34 | Emergency (ER) | payer MEDICARE ==
[~2019-08-20] VITALS: Ht 160 cm; Wt 66.8 kg
[~2019-08-20 13:34] MED LIST changes: +ALPR0.252 PO; +ALPR2TAB2 PO; -CEPH500C5 PO; -CITA10TA9 PO; +CYAN10007 IM; +DIVA125T2 PO; -PHEN-716 PO; +RISP0.253 PO; -TRAZ-251 PO
[2019-08-20] MEDS ORDERED: acetaminophen 325mg tablet PO ONE (15:05)
[2019-08-20] MEDS ORDERED: fentaNYL/PF 50MCG/1 ML 2ML syringe IV ONE (15:05)
[2019-08-20 15:32] LABS: BASOPHILS % (AUTO) 0.4 % (0-1); EOSINOPHILS % (AUTO) 0.1 % (0-6); HEMATOCRIT 38.8 % (35.0-45.0); HEMOGLOBIN 13.5 g/dl (12.0-16.0); LYMPHOCYTES # (AUTO) 1.1 X10'3 (1.1-4.8); MEAN CORPUSCULAR HGB CONC 34.7 g/dL (33.0-36.5); MEAN CORPUSCULAR VOLUME 95.2 FL (78-98); MEAN PLATELET VOLUME 9.1 FL (7.4-10.4); MONOCYTES # (AUTO) 0.9 X10'3 (0-0.9); NEUTROPHILS # (AUTO) 8.8 X10'3 (1.8-7.7); NEUTROPHILS % (AUTO) 81.5 % (42-75); PLATELET COUNT 156 X10'3 (140-440); RED BLOOD COUNT 4.08 X10'6 (4.20-5.60); RED CELL DISTRIBUTION WIDTH 13.7 % (11.5-14.5); WHITE BLOOD COUNT 10.8 X10'3 (4.5-11.0)
[2019-08-20 16:28] LABS: ALANINE AMINOTRANSFERASE 63 U/L (12-78); ALBUMIN 1.7 G/DL (3.4-5.0); ALBUMIN/GLOBULIN RATIO 0.4 (1.1-1.5); ALKALINE PHOSPHATASE 79 IU/L (46-116); ANION GAP 7 (8-16); ASPARTATE AMINO TRANSFERASE 49 U/L (10-37); BILIRUBIN,TOTAL 0.4 MG/DL (0.1-1.0); BLOOD UREA NITROGEN 8 MG/DL (7-18); BUN/CREATININE RATIO 8.6 (6.6-38.0); CALCIUM 7.9 MG/DL (8.5-10.1); CHLORIDE 111 MMOL/L (99-107); CREATININE 0.93 MG/DL (0.40-0.90); GLUCOSE 116 MG/DL (70-104); LIPASE 67 U/L (73-393); POTASSIUM 3.8 MMOL/L (3.5-5.1); SODIUM 145 MMOL/L (135-145); TOTAL CARBON DIOXIDE 27.3 MMOL/L (24-32); eGFR 58 ML/MIN
[2019-08-20 17:04] LABS: CLARITY,URINE CLOUDY (Clear); COLOR,URINE YELLOW (Yellow); GLUCOSE, URINE NEGATIVE (Neg); KETONES,URINE NEGATIVE (Neg); LEUKOCYTE ESTERASE ,URINE LARGE (Neg); NITRITES, URINE NEGATIVE (Neg); OCCULT BLOOD,URINE TRACE-INTACT (Neg); PROTEIN,URINE NEGATIVE (Neg); UROBILINOGEN,URINE 0.2 E.U/dL (0.2-1.0)
[2019-08-20 17:11] LABS: UA COLLECTION TYPE STRAIGHT CATH
[2019-08-20 17:12] LABS: BACTERIA,URINE 4+ /HPF (Neg); RBC,URINE 0-2 /HPF (0-2); WBC,URINE 20-30 /HPF (0-4)
[2019-08-20 17:13] LABS: MUCUS STRANDS FEW /LPF (Neg); SQUAMOUS EPITHELIAL CELL,UR NONE SEEN /LPF (FEW); WBC CLUMPS,URINE FEW /HPF (NEGATIVE)
[2019-08-20] MEDS ORDERED: NITR100C6 PO (17:29)
[2019-08-20] MEDS ORDERED: HYDR-3965 PO (17:29)
[2019-08-20] MEDS ORDERED: CefTRIAXone/D5W-Rocephin 1gm 50 ML IV ONE (17:30)
[2019-08-20] MEDS ORDERED: HYDROcodone/acetaminophen 10/325mg tab PO ONE (17:30)
[2019-08-20 18:10] VITALS: BP 123/60
[2019-08-21] MEDS ORDERED: ALPR0.5T8 PO (17:16)
[2019-08-21] MEDS ORDERED: MIRT30TA8 PO (17:16)
[2019-08-24] MEDS ORDERED: LEVO500T2 PO (14:21)
== END 2019-08-20 18:14 | disposition home or self-care (01) ==
LOC: ER 13:35
DX: N39.0 Urinary tract infection, site not specified (principal); I48.91 Unspecified atrial fibrillation; G89.29 Other chronic pain; F41.9 Anxiety disorder, unspecified; Z90.710 Acquired absence of both cervix and uterus; Z98.890 Other specified postprocedural states; Z86.19 Personal history of other infectious and parasitic diseases; Z88.5 Allergy status to narcotic agent; Z79.899 Other long term (current) drug therapy
CPT/HCPCS: 36415; 74176; 80053; 81001; 83690; 85025; 87077; 87088; 87186; 96365; 96375; 99284; J0696; J3010

== ENCOUNTER 2019-09-29 10:59 | Emergency (ER) | payer MEDICARE ==
[~2019-09-29] VITALS: Ht 160 cm; Wt 64.3 kg
[~2019-09-29 10:59] MED LIST changes: -ALPR0.255 PO; +ALPR0.5T8 PO; -ALPR2TAB2 PO; -FAMO20TA8 PO; -MIRT15TA8 PO; +MIRT30TA8 PO
[2019-09-29 11:33] LABS: BASOPHILS % (AUTO) 0.5 % (0-1); EOSINOPHILS # (AUTO) 0.1 X10'3 (0-0.9); EOSINOPHILS % (AUTO) 1.1 % (0-6); HEMATOCRIT 41.3 % (35.0-45.0); HEMOGLOBIN 14.3 g/dl (12.0-16.0); LYMPHOCYTES % (AUTO) 23.1 % (21-51); MEAN CORPUSCULAR HEMOGLOBIN 33.5 PG (27.0-31.0); MEAN CORPUSCULAR HGB CONC 34.6 g/dL (33.0-36.5); MEAN CORPUSCULAR VOLUME 96.7 FL (78-98); MEAN PLATELET VOLUME 9.3 FL (7.4-10.4); MONOCYTES # (AUTO) 0.7 X10'3 (0-0.9); MONOCYTES % (AUTO) 8.6 % (2-12); NEUTROPHILS # (AUTO) 5.8 X10'3 (1.8-7.7); NEUTROPHILS % (AUTO) 66.7 % (42-75); PLATELET COUNT 169 X10'3 (140-440); RED BLOOD COUNT 4.27 X10'6 (4.20-5.60); RED CELL DISTRIBUTION WIDTH 13.8 % (11.5-14.5); WHITE BLOOD COUNT 8.7 X10'3 (4.5-11.0)
[2019-09-29 11:39] LABS: ALANINE AMINOTRANSFERASE 45 U/L (12-78); ALBUMIN 3.5 G/DL (3.4-5.0); ALKALINE PHOSPHATASE 86 IU/L (46-116); ANION GAP 9 (8-16); ASPARTATE AMINO TRANSFERASE 40 U/L (10-37); BILIRUBIN,TOTAL 0.5 MG/DL (0.1-1.0); BLOOD UREA NITROGEN 8 MG/DL (7-18); BUN/CREATININE RATIO 8.2 (6.6-38.0); CALCIUM 8.7 MG/DL (8.5-10.1); CHLORIDE 106 MMOL/L (99-107); CREATININE 0.98 MG/DL (0.40-0.90); GLUCOSE 110 MG/DL (70-104); POTASSIUM 3.6 MMOL/L (3.5-5.1); SODIUM 142 MMOL/L (135-145); TOTAL CARBON DIOXIDE 27.1 MMOL/L (24-32); TOTAL PROTEIN 7.1 G/DL (6.4-8.2); eGFR 54 ML/MIN
[2019-09-29] MEDS ORDERED: CefTRIAXone/D5W-Rocephin 1gm 50 ML IV STA (13:27)
[2019-09-29] MEDS ORDERED: CEPH500C5 PO (14:14)
[2019-09-29] MEDS ORDERED: ketorolac tromethamine 15mg/ml inj. IV ONE (14:15)
[2019-09-29 15:01] VITALS: BP 143/54
[2019-09-29 15:20] LABS: CLARITY,URINE SLIGHTLY CLOUDY (Clear); COLOR,URINE YELLOW (Yellow); GLUCOSE, URINE NEGATIVE (Neg); KETONES,URINE NEGATIVE (Neg); LEUKOCYTE ESTERASE ,URINE MODERATE (Neg); NITRITES, URINE NEGATIVE (Neg); OCCULT BLOOD,URINE LARGE (Neg); PROTEIN,URINE NEGATIVE (Neg); UROBILINOGEN,URINE 0.2 E.U/dL (0.2-1.0)
[2019-09-29 15:24] LABS: UA COLLECTION TYPE CLN CATCH MIDSTREAM
[2019-09-29 15:26] LABS: BACTERIA,URINE 1+ /HPF (Neg); SQUAMOUS EPITHELIAL CELL,UR FEW /LPF (FEW); WBC,URINE 30-50 /HPF (0-4)
[2019-09-29 15:27] LABS: WBC CLUMPS,URINE MANY /HPF (NEGATIVE)
== END 2019-09-29 15:03 | disposition home or self-care (01) ==
LOC: ER 10:59
DX: J90 Pleural effusion, not elsewhere classified (principal); I48.91 Unspecified atrial fibrillation; G89.29 Other chronic pain; Z90.710 Acquired absence of both cervix and uterus; Z98.890 Other specified postprocedural states; Z87.01 Personal history of pneumonia (recurrent); Z86.19 Personal history of other infectious and parasitic diseases; Z88.5 Allergy status to narcotic agent; Z88.6 Allergy status to analgesic agent; Z79.899 Other long term (current) drug therapy
CPT/HCPCS: 36415; 71045; 80053; 81001; 83605; 84484; 85025; 87040; 87088; 93005; 96365; 96375; 99285; J0696; J1885

== ENCOUNTER 2019-10-22 07:59 | Day surgery (SDC) | payer MEDICARE ==
[~2019-10-22] VITALS: Ht 160 cm; Wt 66.2 kg
[2019-10-22] VITALS (8 sets, daily range): BP systolic 122–157; BP diastolic 56–75
[~2019-10-22 07:59] MED LIST changes: +CEPH500C5 PO
[2019-10-22] MEDS ORDERED: APIX5TAB3 PO (08:39)
[2019-10-22] MEDS ORDERED: MIRT15TA PO (08:41)
[2019-10-22] MEDS ORDERED: TRAZ-251 PO (08:41)
[2019-10-22] MEDS ORDERED: CITA-311 PO (08:41)
[2019-10-22] MEDS ORDERED: FAMO20TA8 PO (08:41)
--- NOTE | 2019-10-22 09:55 | NUR ---
FABIEN Miranda at bedside. Pt complaining of 8/10 pain s/p thoracentesis. Orders received for oral morphine & Zofran.
[2019-10-22] MEDS ORDERED: ondansetron 4mg rapidly disintigrating tab PO ONE (10:05)
[2019-10-22] MEDS ORDERED: HYDROcodone/acetaminophen 5mg/325mg tablet PO ONE (10:20)
[2019-10-22 11:12] LABS: GLUCOSE,BODY FLUID 108 MG/DL; LDH,BODY FLUID 92 U/L; TOTAL PROTEIN,BODY FLUID 3.8 G/DL
[2019-10-22 11:40] LABS: BF RBC COUNT 111 /CU MM; BF WBC COUNT 220 /CU MM (0-1000); BFAPPEAR HAZY; BFCOLOR YELLOW; BFVOLUME 49 ML; LYMPHOCYTES,BODY FLUID 59 %
[2019-10-22 11:41] LABS: BASOPHILS,BODY FLUID 2 %; EOSINOPHILS,BODY FLUID 7 %; MONOCYTES,BODY FLUID 24 %
[2019-10-22 11:54] LABS: BF MESOTHELIAL CELLS FEW; NEUTROPHILS,BODY FLUID 8 %
[2019-10-22] MEDS ORDERED: morphine ER 15mg tablet PO SCH (20:00)
== END 2019-10-22 10:50 | disposition home or self-care (01) ==
LOC: SSTAY O 07:59 → MED 3N 08:01 → SSTAY O 10:50
PROVIDERS: ATTEND Radiology Diagnostic Radiology
DX: J90 Pleural effusion, not elsewhere classified (principal); I48.91 Unspecified atrial fibrillation; G89.29 Other chronic pain; F41.9 Anxiety disorder, unspecified; Z86.19 Personal history of other infectious and parasitic diseases; Z86.73 Personal history of transient ischemic attack (TIA), and cerebral infarction without residual deficits; Z87.01 Personal history of pneumonia (recurrent); Z87.440 Personal history of urinary (tract) infections; Z90.710 Acquired absence of both cervix and uterus; Z98.890 Other specified postprocedural states; Z88.5 Allergy status to narcotic agent; Z88.8 Allergy status to other drugs, medicaments and biological substances; Z79.899 Other long term (current) drug therapy; Z80.0 Family history of malignant neoplasm of digestive organs; Z82.3 Family history of stroke
CPT/HCPCS: 32555; 71045; 82945; 83615; 84157; 87070; 89051; C1729

== ENCOUNTER 2020-08-28 13:24 | Emergency (ER) | payer MEDICARE ==
[~2020-08-28] VITALS: Ht 157.5 cm; Wt 66.0 kg
[~2020-08-28 13:24] MED LIST changes: -ALPR0.252 PO; -ALPR0.5T8 PO; +APIX5TAB3 PO; -CEPH500C5 PO; +CITA-311 PO; -CLOP75TA15 PO; -CYAN500T63 PO; +CYAN500T71 PO; -DIVA125T2 PO; +FAMO20TA8 PO; +MIRT-116 PO; -MIRT30TA8 PO; -RISP0.253 PO; +TRAZ-251 PO
[2020-08-28 15:19] LABS: BASOPHILS # (AUTO) 0.1 X10'3 (0-0.2); BASOPHILS % (AUTO) 0.6 % (0-1); EOSINOPHILS # (AUTO) 0.1 X10'3 (0-0.9); EOSINOPHILS % (AUTO) 0.7 % (0-6); HEMATOCRIT 41.6 % (35.0-45.0); HEMOGLOBIN 14.2 g/dl (12.0-16.0); LYMPHOCYTES # (AUTO) 1.8 X10'3 (1.1-4.8); LYMPHOCYTES % (AUTO) 21.4 % (21-51); MEAN CORPUSCULAR HEMOGLOBIN 33.9 PG (27.0-31.0); MEAN CORPUSCULAR VOLUME 99.6 FL (78-98); MEAN PLATELET VOLUME 8.6 FL (7.4-10.4); MONOCYTES # (AUTO) 0.9 X10'3 (0-0.9); NEUTROPHILS # (AUTO) 5.8 X10'3 (1.8-7.7); NEUTROPHILS % (AUTO) 67.3 % (42-75); PLATELET COUNT 210 X10'3 (140-440); RED BLOOD COUNT 4.18 X10'6 (4.20-5.60); RED CELL DISTRIBUTION WIDTH 13.2 % (11.5-14.5); WHITE BLOOD COUNT 8.6 X10'3 (4.5-11.0)
[2020-08-28 15:34] LABS: ALANINE AMINOTRANSFERASE 86 U/L (12-78); ALBUMIN 3.6 G/DL (3.4-5.0); ALBUMIN/GLOBULIN RATIO 0.9 (1.1-1.5); ALKALINE PHOSPHATASE 64 IU/L (46-116); ANION GAP 7 (8-16); ASPARTATE AMINO TRANSFERASE 65 U/L (10-37); BILIRUBIN,TOTAL 0.4 MG/DL (0.1-1.0); BLOOD UREA NITROGEN 28 MG/DL (7-18); BUN/CREATININE RATIO 25.5 (6.6-38.0); CALCIUM 9.6 MG/DL (8.5-10.1); CHLORIDE 104 MMOL/L (99-107); GLUCOSE 114 MG/DL (70-104); LIPASE 212 U/L (73-393); POTASSIUM 4.7 MMOL/L (3.5-5.1); SODIUM 144 MMOL/L (135-145); TOTAL CARBON DIOXIDE 33.2 MMOL/L (24-32); TOTAL PROTEIN 7.4 G/DL (6.4-8.2); eGFR 48 ML/MIN
[2020-08-28] MEDS ORDERED: morphine 4 MG/ML inj SYRINge IV ONE (15:45)
[2020-08-28 16:04] LABS: CLARITY,URINE SLIGHTLY CLOUDY (Clear); COLOR,URINE YELLOW (Yellow); GLUCOSE, URINE NEGATIVE (Neg); KETONES,URINE NEGATIVE (Neg); LEUKOCYTE ESTERASE ,URINE NEGATIVE (Neg); NITRITES, URINE NEGATIVE (Neg); OCCULT BLOOD,URINE MODERATE (Neg); PH,URINE 7.5 (4.8-8.0); PROTEIN,URINE NEGATIVE (Neg); UROBILINOGEN,URINE 0.2 E.U/dL (0.2-1.0)
[2020-08-28 16:05] LABS: UA COLLECTION TYPE CLN CATCH MIDSTREAM
[2020-08-28 16:06] LABS: TROPONIN I < 0.04 NG/ML (0.0-0.05)
[2020-08-28] MEDS ORDERED: iohexol 300mg/ml 100ml inj. ONE (16:09)
[2020-08-28 16:13] LABS: MUCUS STRANDS FEW /LPF (Neg); SQUAMOUS EPITHELIAL CELL,UR FEW /LPF (FEW)
[2020-08-28 16:14] LABS: RBC,URINE 20-50 /HPF (0-2)
[2020-08-28 16:15] LABS: BACTERIA,URINE 1+ /HPF (Neg); WBC,URINE 0-4 /HPF (0-4)
[2020-08-28] MEDS ORDERED: ondansetron/PF 4mg/2ml inj IV ONE (16:15)
--- NOTE | 2020-08-28 17:23 | NUR ---
Dr. Ge at bedside for re-evaluation of patient.
[2020-08-28 17:38] VITALS: BP 95/56
[2020-08-28] MEDS ORDERED: oxyCODONE/APAP 5-325mg tablet PO ONE (17:45)
--- NOTE | 2020-08-28 17:47 | NUR ---
Pt has allerg to hydrocodone. Per Pharmacist Ajay ok to give percocet to patient.
== END 2020-08-28 17:56 | disposition home or self-care (01) ==
LOC: ER 13:24
DX: R10.31 Right lower quadrant pain (principal); R07.89 Other chest pain; R31.9 Hematuria, unspecified; R11.0 Nausea; I48.91 Unspecified atrial fibrillation; G89.29 Other chronic pain; Z87.01 Personal history of pneumonia (recurrent); Z87.09 Personal history of other diseases of the respiratory system; Z87.442 Personal history of urinary calculi; Z88.8 Allergy status to other drugs, medicaments and biological substances; Z79.899 Other long term (current) drug therapy; Z87.440 Personal history of urinary (tract) infections; Z90.49 Acquired absence of other specified parts of digestive tract; Z90.710 Acquired absence of both cervix and uterus
CPT/HCPCS: 36415; 71045; 74177; 80053; 81001; 83690; 84484; 85025; 93005; 96374; 96375; 99285; J2270; J2405; Q9967; 96365

== ENCOUNTER 2021-05-04 17:52 | Emergency (ER) | payer MEDICARE ==
[~2021-05-04] VITALS: Ht 160 cm; Wt 62.7 kg
[~2021-05-04 17:52] MED LIST changes: +ALPR1TAB2 PO; -APIX5TAB3 PO; -CITA-311 PO; -CYAN500T71 PO; +DIVA125T9 PO; -FAMO20TA8 PO; +LACT1CAP26 PO; +METO50TA17 PO; -MIDO2.5T14 PO; +OXYC-145 PO; +POTA10TA19 PO; +RISP0.5T74 PO; -TRAZ-251 PO; +ZALE10CA PO
[2021-05-04 23:01] VITALS: BP 121/58
[2021-05-05] MEDS ORDERED: ketorolac trometh. 30mg/ml inj. IV ONE (00:15)
[2021-05-05] MEDS ORDERED: orphenadrine citrate 60mg/2ml inj. IM ONE (00:15)
[2021-05-05] MEDS ORDERED: acetaminophen 325mg tablet PO ONE (00:15)
[2021-05-05] MEDS ORDERED: LIDOcaine 5% patch TP ONE (01:45)
[2021-05-05] MEDS ORDERED: MORP15TA PO (03:10)
[2021-05-05] MEDS ORDERED: LIDO700A32 TOP (03:10)
[2021-05-05] MEDS ORDERED: CYCL-1 PO (03:10)
[2021-05-05] MEDS ORDERED: morphine 2 MG/ML inj. syringe IV ONE (03:15)
== END 2021-05-05 03:59 | disposition home or self-care (01) ==
LOC: ER 17:52
DX: G89.29 Other chronic pain (principal); M54.89 Other dorsalgia; I48.91 Unspecified atrial fibrillation; F41.9 Anxiety disorder, unspecified; Z86.19 Personal history of other infectious and parasitic diseases; Z87.01 Personal history of pneumonia (recurrent); Z87.442 Personal history of urinary calculi; Z87.440 Personal history of urinary (tract) infections; Z90.89 Acquired absence of other organs; Z90.49 Acquired absence of other specified parts of digestive tract; Z90.710 Acquired absence of both cervix and uterus; Z98.890 Other specified postprocedural states; Z88.8 Allergy status to other drugs, medicaments and biological substances; Z79.899 Other long term (current) drug therapy
CPT/HCPCS: 72131; 96372; 96374; 96375; 99284; J1885; J2270; J2360

== ENCOUNTER 2022-11-14 12:54 | Inpatient (IN) | payer MEDICARE ==
[~2022-11-14] VITALS: Ht 160 cm; Wt 63.6 kg
[~2022-11-14 12:54] MED LIST changes: +ALPR0.5T8 PO; -ALPR1TAB2 PO; +AMOX-419 PO; +APIX5TAB3 PO; -ATOR80TA PO; +BENZ2TAB70 PO; +CYAN10006 IM; -CYAN10007 IM; +DESV100T16 PO; +DIVA125T31 PO; -DIVA125T9 PO; +FURO40TA4 PO; +HYDR-3927 PO; -LACT1CAP26 PO; +LEVO100T9 PO; -LEVO75TA7 PO; +LIOT5TAB10 PO; +METO50TA16 PO; -METO50TA17 PO; +MIDO2.5T14 PO; -MIRT-116 PO; +MIRT-87 PO; -OXYC-145 PO; +POTA-82 PO; -POTA10TA19 PO; -RISP0.5T74 PO; +RYT225T PO; -ZALE10CA PO
[2022-11-14] MEDS ORDERED: normal saline 1000ml 1,000 ML IV ONE (13:20)
--- NOTE | 2022-11-14 13:22 | NUR ---
Report received from Deborah, RN; Pt resting comfortably in bed; VSS; NAD noted; dairy technologist to pt bedside at [facility] time for EKG
--- NOTE | 2022-11-14 13:55 | NUR ---
technology coach to pt bedside at this time
[2022-11-14 14:26] LABS: BASOPHILS # (AUTO) 0.1 X10'3 (0-0.2); BASOPHILS % (AUTO) 1.1 % (0-1); EOSINOPHILS % (AUTO) 0.3 % (0-6); HEMATOCRIT 45.1 % (35.0-45.0); HEMOGLOBIN 15.5 g/dl (12.0-16.0); LYMPHOCYTES # (AUTO) 2.2 X10'3 (1.1-4.8); LYMPHOCYTES % (AUTO) 22.9 % (21-51); MEAN CORPUSCULAR HEMOGLOBIN 32.7 PG (27.0-31.0); MEAN CORPUSCULAR HGB CONC 34.3 g/dL (33.0-36.5); MEAN CORPUSCULAR VOLUME 95.3 FL (78-98); MEAN PLATELET VOLUME 9.6 FL (7.4-10.4); MONOCYTES # (AUTO) 0.7 X10'3 (0-0.9); MONOCYTES % (AUTO) 7.6 % (2-12); NEUTROPHILS # (AUTO) 6.7 X10'3 (1.8-7.7); NEUTROPHILS % (AUTO) 68.1 % (42-75); PLATELET COUNT 210 X10'3 (140-440); RED BLOOD COUNT 4.73 X10'6 (4.20-5.60); RED CELL DISTRIBUTION WIDTH 14.1 % (11.5-14.5); WHITE BLOOD COUNT 9.8 X10'3 (4.5-11.0)
[2022-11-14 14:37] LABS: ALANINE AMINOTRANSFERASE 178 U/L (12-78); ALBUMIN 3.6 G/DL (3.4-5.0); ALBUMIN/GLOBULIN RATIO 0.9 (1.1-1.5); ALKALINE PHOSPHATASE 159 IU/L (46-116); ANION GAP 12 (8-16); ASPARTATE AMINO TRANSFERASE 159 U/L (10-37); BILIRUBIN,TOTAL 0.6 MG/DL (0.1-1.0); BLOOD UREA NITROGEN 28 MG/DL (7-18); BUN/CREATININE RATIO 14.5 (10.0-20.0); CALCIUM 9.4 MG/DL (8.5-10.1); CHLORIDE 103 MMOL/L (99-107); CREATININE 1.93 MG/DL (0.40-0.90); GLUCOSE 112 MG/DL (70-104); LIPASE < 50 U/L (73-393); SODIUM 139 MMOL/L (135-145); TOTAL PROTEIN 7.5 G/DL (6.4-8.2); eGFR 25 ML/MIN
[2022-11-14 15:12] LABS: CLARITY,URINE SLIGHTLY CLOUDY (Clear); COLOR,URINE YELLOW (Yellow); GLUCOSE, URINE NEGATIVE (Neg); KETONES,URINE NEGATIVE (Neg); LEUKOCYTE ESTERASE ,URINE SMALL (Neg); NITRITES, URINE NEGATIVE (Neg); OCCULT BLOOD,URINE SMALL (Neg); PROTEIN,URINE NEGATIVE (Neg); UROBILINOGEN,URINE 0.2 E.U/dL (0.2-1.0)
[2022-11-14 15:21] LABS: UA COLLECTION TYPE CLN CATCH MIDSTREAM
[2022-11-14 15:27] LABS: BACTERIA,URINE 3+ /HPF (Neg); MUCUS STRANDS FEW /LPF (Neg); SQUAMOUS EPITHELIAL CELL,UR MANY /LPF (FEW)
[2022-11-14 15:28] LABS: RBC,URINE 20-50 /HPF (0-2)
[2022-11-14 15:29] LABS: YEAST FEW /HPF (NEGATIVE)
[2022-11-14] MEDS ORDERED: CefTRIAXone/D5W-Rocephin 1gm 50 ML IV ONE (15:35)
[2022-11-14] MEDS ORDERED: mag hydrox/Alum hydrox/simeth 30ml oral suspension PO PRN (17:30)
[2022-11-14] MEDS ORDERED: magnesium 2GM in 50ml NS 50 ML IV PRN (17:30)
[2022-11-14] MEDS ORDERED: magnesium 4gm in 100ml NS 100 ML IV PRN (17:30)
[2022-11-14] MEDS ORDERED: potassium Cl 20 mEq SR tablet PO PRN (17:30)
[2022-11-14] MEDS: piperacillin/tazo 3.375gm/50ml 50 ML IV SCH (17:30)
[2022-11-14] MEDS ORDERED: diphenhydrAMINE 25mg capsule PO PRN (17:30)
[2022-11-14] MEDS ORDERED: acetaminophen 650mg rectal suppository RC PRN (17:30)
[2022-11-14] MEDS ORDERED: ondansetron/PF 4mg/2ml inj IV PRN (17:30)
[2022-11-14] MEDS ORDERED: potassium Cl 40MEQ/1/2NS 520ml 520 ML IV PRN (17:30)
[2022-11-14] MEDS ORDERED: bisacodyl 10mg suppository rectal RC PRN (17:30)
[2022-11-14] MEDS ORDERED: acetaminophen 325mg tablet PO PRN ×2 (17:30)
[2022-11-14] MEDS ORDERED: magnesium Cl slow-release 64mg tablet PO PRN (17:30)
[2022-11-14] MEDS ORDERED: magnesium hydroxide 30ml (MOM) UD suspension PO PRN (17:30)
[2022-11-14] MEDS ORDERED: MIRT-67 PO (17:56)
[2022-11-14] MEDS: normal saline 1000ml 1,000 ML IV SCH (18:28)
[2022-11-14 20:00] VITALS: BP_SYST 119; BP_SYST 123; BP_DIAS 42; BP_DIAS 76
[2022-11-14] MEDS: K and/or MAG REPLACEMENT MC SCH (20:00)
--- NOTE | 2022-11-14 20:00 | NUR ---
Only performed supine, and sitting ortho static VS on Pt due to Pt being weak and unsteady. Pt reportedly had a fall at home recently. Bed alarm on at this time. Addendum: 11/14/22 at 9718 by Tracie Jones LVN Amended: Links added.
[2022-11-14] MEDS: docusate sod 100mg capsule PO SCH (20:34)
[2022-11-14 22:00] VITALS: BP 113/54
[2022-11-14] MEDS ORDERED: cyanocobalamin 1,000 mcg/ml inj IM SCH (22:15)
[2022-11-14] MEDS ORDERED: MIRT-116 PO (22:31)
[2022-11-14] MEDS: ALPRAZolam 0.5mg tablet PO PRN (23:51)
[2022-11-15] MEDS: piperacillin/tazo 3.375gm/50ml 50 ML IV SCH ×3 (01:06→16:24)
[2022-11-15 02:06] VITALS: BP 120/54
[2022-11-15] MEDS: normal saline 1000ml 1,000 ML IV SCH ×3 (03:30→16:24)
[2022-11-15 06:00] VITALS: BP 152/74
--- NOTE | 2022-11-15 06:15 | NUR ---
Problems reprioritized. Patient report given, questions answered & plan of care reviewed with RICARDO Dunn.
[2022-11-15 06:38] LABS: BASOPHILS % (AUTO) 0.3 % (0-1); EOSINOPHILS % (AUTO) 0.1 % (0-6); HEMATOCRIT 38.9 % (35.0-45.0); HEMOGLOBIN 13.2 g/dl (12.0-16.0); LYMPHOCYTES # (AUTO) 1.7 X10'3 (1.1-4.8); LYMPHOCYTES % (AUTO) 14.8 % (21-51); MEAN CORPUSCULAR HEMOGLOBIN 32.7 PG (27.0-31.0); MEAN PLATELET VOLUME 9.7 FL (7.4-10.4); MONOCYTES # (AUTO) 1.3 X10'3 (0-0.9); NEUTROPHILS # (AUTO) 8.7 X10'3 (1.8-7.7); NEUTROPHILS % (AUTO) 73.8 % (42-75); PLATELET COUNT 155 X10'3 (140-440); RED BLOOD COUNT 4.05 X10'6 (4.20-5.60); RED CELL DISTRIBUTION WIDTH 13.9 % (11.5-14.5); WHITE BLOOD COUNT 11.8 X10'3 (4.5-11.0)
[2022-11-15 06:50] LABS: ALANINE AMINOTRANSFERASE 92 U/L (12-78); ALBUMIN 2.8 G/DL (3.4-5.0); ALBUMIN/GLOBULIN RATIO 0.9 (1.1-1.5); ALKALINE PHOSPHATASE 110 IU/L (46-116); ANION GAP 10 (8-16); ASPARTATE AMINO TRANSFERASE 60 U/L (10-37); BILIRUBIN,TOTAL 0.6 MG/DL (0.1-1.0); BLOOD UREA NITROGEN 23 MG/DL (7-18); BUN/CREATININE RATIO 14.6 (10.0-20.0); CALCIUM 8.1 MG/DL (8.5-10.1); CHLORIDE 106 MMOL/L (99-107); CREATININE 1.58 MG/DL (0.40-0.90); GLUCOSE 130 MG/DL (70-104); MAGNESIUM 1.9 MG/DL (1.5-2.4); PHOSPHORUS 2.7 MG/DL (2.3-4.5); POTASSIUM 3.2 MMOL/L (3.5-5.1); SODIUM 139 MMOL/L (135-145); TOTAL CARBON DIOXIDE 22.7 MMOL/L (24-32); eGFR 31 ML/MIN
--- NOTE | 2022-11-15 06:53 | NUR ---
Patient in room [facility]. I have received report from kev guerrero and had the opportunity to ask questions and assume patient care.
[2022-11-15] MEDS: docusate sod 100mg capsule PO SCH ×2 (08:00→19:59)
[2022-11-15] MEDS: apixaban 5mg tablet PO SCH ×2 (08:39→19:56)
[2022-11-15] MEDS: metoprolol tartrate 25mg tablet PO SCH ×2 (08:39→20:12)
[2022-11-15] MEDS: furosemide 40mg tablet PO SCH (08:39)
[2022-11-15] MEDS: midodrine tablet 2.5 MG TABLET PO SCH ×3 (08:39→20:12)
[2022-11-15] MEDS: benztropine 1mg tablet PO SCH (08:39)
[2022-11-15] MEDS: liothyronine sod 5mcg tablet PO SCH (08:40)
[2022-11-15] MEDS: propafenone 150mg tablet PO SCH ×2 (08:40→19:59)
[2022-11-15] MEDS: levoTHYROXINE 100mcg tablet PO SCH (08:40)
[2022-11-15] MEDS: potassium Cl 20 mEq SR tablet PO PRN ×2 (08:41→16:24)
[2022-11-15] MEDS: K and/or MAG REPLACEMENT MC SCH ×2 (08:41→19:59)
[2022-11-15] MEDS: ALPRAZolam 0.5mg tablet PO PRN ×2 (08:47→20:11)
[2022-11-15 11:00] VITALS: BP 110/43
--- NOTE | 2022-11-15 17:40 | NUR ---
Malnutrition Consult: Pt reports 2-13 pounds lost w/ decreased intake RAT CULTURIST per RN Malnutrition Screen. Pt w/ mild weakness, no edema/wounds, and pending scaled wt this admit. Pt recent prior 10/30 admit bed scaled wt 70.6kg though current reported wt is consistent w/ prior admits reported wt hx in EMR. Pt PO 100% first heart healthy meal WB though refused lunch; noted to have diarrhea at lunchtime today likely impacting lunch PO. At this time pt lacks minimum malnutrition criteria; will monitor for further malnutrition criteria this admit. Addendum: 11/15/22 at [address] Amended: Links added.
[2022-11-15 18:00] VITALS: BP 114/45
[2022-11-15] MEDS: mirtazapine 15mg tablet PO SCH (19:56)
[2022-11-15] MEDS: divalproex 250mg tablet, delayed-release PO SCH (19:57)
[2022-11-15 20:00] VITALS: BP_SYST 114; BP_SYST 125; BP_DIAS 45; BP_DIAS 79
[2022-11-15] MEDS: hydrOXYzine 25 MG tablet PO SCH (20:11)
[2022-11-15] MEDS: venlafaxine 25mg tablet PO SCH (21:00)
[2022-11-15 22:00] VITALS: BP 122/62
[2022-11-16] MEDS: piperacillin/tazo 3.375gm/50ml 50 ML IV SCH ×4 (00:10→23:49)
[2022-11-16 05:54] LABS: BASOPHILS % (AUTO) 0.5 % (0-1); EOSINOPHILS # (AUTO) 0.1 X10'3 (0-0.9); EOSINOPHILS % (AUTO) 1.3 % (0-6); HEMATOCRIT 38.4 % (35.0-45.0); HEMOGLOBIN 12.9 g/dl (12.0-16.0); LYMPHOCYTES % (AUTO) 27.6 % (21-51); MEAN CORPUSCULAR HEMOGLOBIN 32.5 PG (27.0-31.0); MEAN CORPUSCULAR HGB CONC 33.6 g/dL (33.0-36.5); MEAN CORPUSCULAR VOLUME 96.7 FL (78-98); MEAN PLATELET VOLUME 9.8 FL (7.4-10.4); MONOCYTES # (AUTO) 0.8 X10'3 (0-0.9); MONOCYTES % (AUTO) 11.2 % (2-12); NEUTROPHILS # (AUTO) 4.2 X10'3 (1.8-7.7); NEUTROPHILS % (AUTO) 59.4 % (42-75); PLATELET COUNT 140 X10'3 (140-440); RED BLOOD COUNT 3.97 X10'6 (4.20-5.60); RED CELL DISTRIBUTION WIDTH 14.1 % (11.5-14.5); WHITE BLOOD COUNT 7.1 X10'3 (4.5-11.0)
[2022-11-16 06:09] LABS: ALANINE AMINOTRANSFERASE 64 U/L (12-78); ALBUMIN 2.6 G/DL (3.4-5.0); ALBUMIN/GLOBULIN RATIO 0.9 (1.1-1.5); ALKALINE PHOSPHATASE 85 IU/L (46-116); ANION GAP 10 (8-16); ASPARTATE AMINO TRANSFERASE 38 U/L (10-37); BILIRUBIN,TOTAL 0.4 MG/DL (0.1-1.0); BLOOD UREA NITROGEN 13 MG/DL (7-18); BUN/CREATININE RATIO 9.7 (10.0-20.0); CHLORIDE 111 MMOL/L (99-107); CREATININE 1.34 MG/DL (0.40-0.90); GLUCOSE 97 MG/DL (70-104); MAGNESIUM 1.7 MG/DL (1.5-2.4); PHOSPHORUS 3.1 MG/DL (2.3-4.5); POTASSIUM 3.1 MMOL/L (3.5-5.1); SODIUM 146 MMOL/L (135-145); TOTAL CARBON DIOXIDE 24.9 MMOL/L (24-32); TOTAL PROTEIN 5.6 G/DL (6.4-8.2); eGFR 38 ML/MIN
--- NOTE | 2022-11-16 06:46 | NUR ---
Patient in room [facility]. I have received report from Elena SILVA and had the opportunity to ask questions and assume patient care.
[2022-11-16 07:00] VITALS: BP 135/55
[2022-11-16] MEDS: docusate sod 100mg capsule PO SCH ×3 (08:00→21:17)
[2022-11-16] MEDS: midodrine tablet 2.5 MG TABLET PO SCH ×3 (08:00→21:00)
[2022-11-16] MEDS: K and/or MAG REPLACEMENT MC SCH ×2 (08:00→20:00)
[2022-11-16] MEDS: liothyronine sod 5mcg tablet PO SCH (08:31)
[2022-11-16] MEDS: furosemide 40mg tablet PO SCH (08:33)
[2022-11-16] MEDS: levoTHYROXINE 100mcg tablet PO SCH (08:33)
[2022-11-16] MEDS: metoprolol tartrate 25mg tablet PO SCH ×2 (08:37→21:16)
[2022-11-16] MEDS: benztropine 1mg tablet PO SCH (08:37)
[2022-11-16] MEDS: apixaban 5mg tablet PO SCH ×2 (08:38→21:17)
[2022-11-16] MEDS: potassium Cl 20 mEq SR tablet PO PRN ×3 (08:39→21:16)
[2022-11-16] MEDS: venlafaxine 25mg tablet PO SCH ×3 (08:39→21:15)
[2022-11-16] MEDS: ALPRAZolam 0.5mg tablet PO PRN ×2 (11:35→21:16)
[2022-11-16] MEDS: normal saline 1000ml 1,000 ML IV SCH (15:22)
--- NOTE | 2022-11-16 16:27 | NUR ---
patient c/o very sore left ear, also is on mididrone with lopresorand lasix. Page sent to Dr Brock with regards this.ill continue to monitor
--- NOTE | 2022-11-16 18:15 | NUR ---
Problems reprioritized. Patient report given, questions answered & plan of care reviewed with Elena SILVA.
[2022-11-16 20:00] VITALS: BP_SYST 140; BP_SYST 141; BP_DIAS 49; BP_DIAS 59
[2022-11-16] MEDS: mirtazapine 15mg tablet PO SCH (21:15)
[2022-11-16] MEDS: divalproex 250mg tablet, delayed-release PO SCH (21:16)
[2022-11-16] MEDS: hydrOXYzine 25 MG tablet PO SCH (21:17)
[2022-11-16] MEDS: propafenone 150mg tablet PO SCH (21:18)
[2022-11-16 22:00] VITALS: BP 128/47
[2022-11-17] MEDS: normal saline 1000ml 1,000 ML IV SCH (04:17)
[2022-11-17 06:16] LABS: BASOPHILS % (AUTO) 0.5 % (0-1); EOSINOPHILS # (AUTO) 0.1 X10'3 (0-0.9); EOSINOPHILS % (AUTO) 1.8 % (0-6); HEMATOCRIT 37.6 % (35.0-45.0); HEMOGLOBIN 12.6 g/dl (12.0-16.0); LYMPHOCYTES # (AUTO) 2.3 X10'3 (1.1-4.8); LYMPHOCYTES % (AUTO) 28.5 % (21-51); MEAN CORPUSCULAR HEMOGLOBIN 32.3 PG (27.0-31.0); MEAN CORPUSCULAR HGB CONC 33.5 g/dL (33.0-36.5); MEAN CORPUSCULAR VOLUME 96.2 FL (78-98); MEAN PLATELET VOLUME 10.1 FL (7.4-10.4); MONOCYTES # (AUTO) 0.8 X10'3 (0-0.9); MONOCYTES % (AUTO) 9.7 % (2-12); NEUTROPHILS # (AUTO) 4.8 X10'3 (1.8-7.7); NEUTROPHILS % (AUTO) 59.5 % (42-75); PLATELET COUNT 144 X10'3 (140-440); RED BLOOD COUNT 3.91 X10'6 (4.20-5.60); RED CELL DISTRIBUTION WIDTH 14.4 % (11.5-14.5); WHITE BLOOD COUNT 8.1 X10'3 (4.5-11.0)
[2022-11-17 06:30] VITALS: BP 128/59
[2022-11-17 06:40] LABS: ALANINE AMINOTRANSFERASE 50 U/L (12-78); ALBUMIN 2.5 G/DL (3.4-5.0); ALBUMIN/GLOBULIN RATIO 0.8 (1.1-1.5); ALKALINE PHOSPHATASE 79 IU/L (46-116); ANION GAP 11 (8-16); ASPARTATE AMINO TRANSFERASE 33 U/L (10-37); BILIRUBIN,TOTAL 0.4 MG/DL (0.1-1.0); BLOOD UREA NITROGEN 9 MG/DL (7-18); BUN/CREATININE RATIO 7.1 (10.0-20.0); CALCIUM 8.6 MG/DL (8.5-10.1); CHLORIDE 111 MMOL/L (99-107); CREATININE 1.27 MG/DL (0.40-0.90); GLUCOSE 87 MG/DL (70-104); MAGNESIUM 1.9 MG/DL (1.5-2.4); PHOSPHORUS 2.7 MG/DL (2.3-4.5); POTASSIUM 3.3 MMOL/L (3.5-5.1); SODIUM 146 MMOL/L (135-145); TOTAL PROTEIN 5.6 G/DL (6.4-8.2); eGFR 40 ML/MIN
[2022-11-17] MEDS: docusate sod 100mg capsule PO SCH (08:00)
[2022-11-17] MEDS: piperacillin/tazo 3.375gm/50ml 50 ML IV SCH (08:34)
[2022-11-17] MEDS: K and/or MAG REPLACEMENT MC SCH (08:35)
[2022-11-17] MEDS: benztropine 1mg tablet PO SCH (08:36)
[2022-11-17] MEDS: liothyronine sod 5mcg tablet PO SCH (08:36)
[2022-11-17] MEDS: apixaban 5mg tablet PO SCH (08:37)
[2022-11-17] MEDS: furosemide 40mg tablet PO SCH (08:37)
[2022-11-17] MEDS: venlafaxine 25mg tablet PO SCH ×2 (08:37→12:36)
[2022-11-17] MEDS: propafenone 150mg tablet PO SCH (08:38)
[2022-11-17] MEDS: metoprolol tartrate 25mg tablet PO SCH (08:38)
[2022-11-17] MEDS: levoTHYROXINE 100mcg tablet PO SCH (08:39)
[2022-11-17] MEDS: ALPRAZolam 0.5mg tablet PO PRN ×2 (08:39→15:51)
[2022-11-17] MEDS: midodrine tablet 2.5 MG TABLET PO SCH ×2 (08:48→12:36)
[2022-11-17 11:00] VITALS: BP 137/65
[2022-11-17] MEDS ORDERED: POTASSIUM BICARB 20meq eff tab 20 MEQ TABLET.EFF PO ONE (12:45)
[2022-11-17] MEDS ORDERED: POTASSIUM BICARB 20meq eff tab 20 MEQ TABLET.EFF PO PRN ×2 (12:50→12:55)
[2022-11-17 12:55] VITALS: BP_SYST 106; BP_SYST 130; BP_SYST 83; BP_DIAS 38; BP_DIAS 49; BP_DIAS 52
--- NOTE | 2022-11-17 13:45 | NUR ---
SEE PAGE TO DOCTOR BELOW: PAGER ID: [phone] MESSAGE: ROOM 359B - [facility] - HAS POSITIVE ORTHOSTASIS: LYING= 130/49 HR 67 SITTING= 106/52 HR 72 STANDING= 83/38 HR 69. I WILL STRAIGHT CATH AFTER HER LUNCH FOR A CLEAN URING CATCH - ASHLEY RN [id number]
[2022-11-17] MEDS ORDERED: FURO40TA4 PO (14:48)
--- NOTE | 2022-11-17 18:00 | NUR ---
PT DISCHARGED HOME AT APPROX 1630. VSS A/OX3 EXPLAINED ALL DISCHARGE INSTRUCTIONS WITH PATIENT VERBALIZING UNDERSTANDING REGARDING POC. PT WILL FOLLOW UP WITH HER UROLOGIST AND PRIMARY CARE DOCTOR WITHIN ONE WEEK. PT LEFT VIA WHEELCHAIR TO LOBBY AND IS TAKING HER HOME.
[2022-11-18] MEDS ORDERED: cyanocobalamin 1,000 mcg/ml inj IM SCH (08:00)
== END 2022-11-17 16:53 | disposition home health service (06) | DRG 682 ==
LOC: ER 12:54 → ED HOLD 17:36 → EDBEDREQ 20:44 → SUR 3N 22:00
PROVIDERS: ADMIT Family Medicine; ATTEND Family Medicine
DX: N17.0 Acute kidney failure with tubular necrosis (principal); G93.41 Metabolic encephalopathy; N30.01 Acute cystitis with hematuria; E03.9 Hypothyroidism, unspecified; E86.0 Dehydration; E87.6 Hypokalemia; B19.20 Unspecified viral hepatitis C without hepatic coma; F41.9 Anxiety disorder, unspecified; G89.29 Other chronic pain; M54.9 Dorsalgia, unspecified; I48.91 Unspecified atrial fibrillation; I95.1 Orthostatic hypotension; N18.9 Chronic kidney disease, unspecified; Z79.01 Long term (current) use of anticoagulants; Z80.0 Family history of malignant neoplasm of digestive organs; Z82.3 Family history of stroke; Z87.442 Personal history of urinary calculi; Z90.49 Acquired absence of other specified parts of digestive tract; Z90.710 Acquired absence of both cervix and uterus; Z88.5 Allergy status to narcotic agent; Z79.899 Other long term (current) drug therapy; Z79.890 Hormone replacement therapy
CPT/HCPCS: 36415; 80053; 81001; 83605; 83690; 83735; 84100; 84145; 84443; 85025; 87040; 87081; 87088; 93005; 97161; 99285; A6212; G0378; J0696; J2543; J7030; Q0177

== ENCOUNTER 2022-12-12 12:43 | Outpatient (CLI) | payer MEDICARE ==
[~2022-12-12 12:43] MED LIST changes: -AMOX-419 PO; -BENZ2TAB70 PO; -MIRT-87 PO; +POTA-366 PO; -POTA-82 PO
== END 2022-12-12 23:59 | disposition home or self-care (01) ==
LOC: RAD 12:43
PROVIDERS: ATTEND Otolaryngology
DX: R13.12 Dysphagia, oropharyngeal phase (principal)
CPT/HCPCS: 74230